=== PATIENT | male | born 1945 | race Caucasian/White ===

== ENCOUNTER → 2020-09-02 10:10 | Outpatient (BNVA) | payer OTHER, SELFPAY | PROVIDERS: PCP Family Medicine; Referring Provider Family Medicine; Visit Provider Podiatrist Foot & Ankle Surgery | DX: M19.071 Primary osteoarthritis, right ankle and foot (principal); M25.571 Pain in right ankle and joints of right foot | CPT/HCPCS: 73610 ==

== ENCOUNTER → 2022-04-25 10:26 | Outpatient (BNVA) | payer OTHER, SELFPAY | PROVIDERS: PCP Family Medicine; Visit Provider Podiatrist Foot & Ankle Surgery | DX: E11.42 Type 2 diabetes mellitus with diabetic polyneuropathy (principal); E11.8 Type 2 diabetes mellitus with unspecified complications; L60.3 Nail dystrophy; M25.571 Pain in right ankle and joints of right foot; M19.071 Primary osteoarthritis, right ankle and foot | CPT/HCPCS: 99213 ==

== ENCOUNTER 2025-03-08 17:13 | Emergency (ER) | payer OTHER, SELFPAY ==
[2025-03-08 17:13] VITALS: BP 119/85; PULSE 101; PULSE 96; RESP 18; RESP 20; TEMP 36.7; O2SAT 100; O2SAT 95
--- NOTE | 2025-03-08 17:14 | CTR_ITS ---
PROCEDURE INFORMATION: Exam: CTA Head With Contrast, Arteriography Exam date and time: 03/08/2025 5:17 PM Age: 79 years old Clinical indication: Speech disturbance; Additional info: CVA TECHNIQUE: Imaging protocol: Computed tomographic angiography of the head with contrast. Exam focused on the arteries. 3D rendering (Not supervised by radiologist): MIP and/or 3D reconstructed images were created by the technologist. Radiation optimization: All CT scans at this facility use at least one of these dose optimization techniques: automated exposure control; mA and/or kV adjustment per patient size (includes targeted exams where dose is matched to clinical indication); or iterative reconstruction. Contrast material: OMNI 350; Contrast volume: 100 ml; Contrast route: INTRAVENOUS (IV); COMPARISON: CT head thrombolytic [id number] 03/08/2025 5:13 PM RADIATION DOSE METRICS: Total DLP (mGy-cm): 441.76 FINDINGS: ANTERIOR CIRCULATION: Right internal carotid artery: There is atherosclerotic calcification with mild stenosis of the clinoid and communicating portions of the right internal carotid artery. Right middle cerebral artery: No occlusion or significant stenosis. No aneurysm. Right anterior cerebral artery: There is focal moderate stenosis in the right A2 segment of the pericallosal anterior cerebral artery. Left internal carotid artery: There is some atherosclerotic calcification of the distal left internal carotid artery without significant stenosis. Left middle cerebral artery: No occlusion or significant stenosis. No aneurysm. Left anterior cerebral artery: No occlusion or significant stenosis. No aneurysm. 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 There is some retrograde filling of the distal portion of the right vertebral artery which supplies the right PICA. Left vertebral artery: There is atherosclerotic calcification and mild stenosis of the mid left V4 vertebral artery segment. Basilar artery: There is some atherosclerotic change and mild narrowing of the mid basilar artery. Right posterior cerebral artery: There is a segment of severe stenosis of the P2 segment of the right posterior cerebral artery. Left posterior cerebral artery: No occlusion or significant stenosis. No aneurysm. Brain: Please see noncontrast CT brain. Cerebral ventricles: No ventriculomegaly. Bones/joints: No acute fracture. Soft tissues: Unremarkable. COMMENTS: THIS REPORT CONTAINS FINDINGS THAT MAY BE CRITICAL TO PATIENT CARE. The findings were verbally communicated via telephone conference with NILDA GERMAIN at 5:59 PM [employer] [place] on 03/08/2025. The findings were acknowledged and understood. PROCEDURE INFORMATION: Exam: CTA Neck With Contrast Exam date and time: 03/08/2025 5:17 PM Age: 79 years old Clinical indication: Speech disturbance; Additional info: CVA TECHNIQUE: Imaging protocol: Computed tomographic angiography of the neck with contrast. Exam focused on the cervical segments of the vasculature. 3D rendering (Not supervised by radiologist): MIP and/or 3D reconstructed images were created by the technologist. Radiation optimization: All CT scans at this facility use at least one of these dose optimization techniques: automated exposure control; mA and/or kV adjustment per patient size (includes targeted exams where dose is matched to clinical indication); or iterative reconstruction. Contrast material: OMNI 350; Contrast volume: 100 ml; Contrast route: INTRAVENOUS (IV); COMPARISON: CT head thrombolytic [id number] 03/08/2025 5:13 PM RADIATION DOSE METRICS: Total DLP (mGy-cm): 441.76 FINDINGS: Right common carotid artery: No stenosis. No dissection or occlusion. Right internal carotid artery: No stenosis of the extracranial segment. No dissection or occlusion. Right external carotid artery: No occlusion or stenosis of the origin. Left common carotid artery: No stenosis. No dissection or occlusion. Left internal carotid artery: There is some focal atherosclerotic calcification proximal left internal carotid artery but this does not cause significant stenosis when measured according to the NASCET criteria. Left external carotid artery: No occlusion or stenosis of the origin. Right vertebral artery: Right vertebral artery is occluded from its origin and throughout the neck. The age of this finding is not certain. Left vertebral artery: There is moderate to severe stenosis at the origin of the left vertebral artery. Soft tissues: Normal. No significant soft tissue swelling. Bones/joints: No acute fracture. CT/CT angio headneck* [id number] IMPRESSION: 1. 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 Please correlate with clinical history. 2. Stenosis right posterior cerebral artery 3. Mild stenosis right basilar artery 4. Stenosis right anterior cerebral artery IMPRESSION: 1. 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 Please correlate clinically. 2. Moderate to severe stenosis of the origin of the left vertebral artery. 3. No significant stenosis or occlusion involving the carotid arteries in the neck. REFERENCES: NASCET CRITERIA. The degree of stenosis in the cervical segment of the internal carotid artery is based on NASCET criteria. Normal is no stenosis. Mild is less than 50% stenosis. Moderate is 50-69% stenosis. Severe is 70% to 99% stenosis. Total occlusion is no detectable patent lumen.
--- NOTE | 2025-03-08 17:15 | CTR_ITS ---
PROCEDURE INFORMATION: Exam: CT Head Without Contrast Exam date and time: 03/08/2025 5:13 PM Age: 79 years old Clinical indication: Stroke-like symptoms; Speech disturbance; Additional info: Symptoms of acute stroke TECHNIQUE: Imaging protocol: Computed tomography of the head without contrast. Radiation optimization: All CT scans at this facility use at least one of these dose optimization techniques: automated exposure control; mA and/or kV adjustment per patient size (includes targeted exams where dose is matched to clinical indication); or iterative reconstruction. Other technique: STROKE PROTOCOL was implemented. COMPARISON: No relevant prior studies available. RADIATION DOSE METRICS: Total DLP (mGy-cm): 1115.68 FINDINGS: Brain: There is moderate cortical atrophy. Low-density changes in the white matter are consistent with nonspecific small vessel chronic ischemic change. There is no intracranial mass, hemorrhage or edema. There are chronic cortical infarcts in the right frontal lobe, temporal lobe left cerebellar hemisphere and possible chronic lacunar infarcts in the basal ganglia and thalami.. The small chronic infarcts in the left side of the corpus callosum. Cerebral ventricles: No ventriculomegaly. Paranasal sinuses: Visualized sinuses are unremarkable. No fluid levels. Mastoid air cells: Visualized mastoid air cells are well aerated. Bones: There is old left occipital craniotomy. Soft tissues: Unremarkable. CT/CT head thrombolytic [id number] IMPRESSION: Old infarcts. No acute finding. ASSESSMENT: ASPECTS ([place] Stroke Program Early CT Score) is 10.
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
--- OUTSIDE RECORDS SUMMARY | 2025-03-08 17:19 | XMS_ITS | Encounter Summary ---
Author Organization [facility] Address [address] [place] [address] Care Team Providers Care Pantry Chef Name Role Phone Britton Love MD Primary Care Provider [phone] Encounter Details Date Type Department Care Team (Late Contact Info) Description 10/20/2005 Outpatient Historical [facility] Trauma and General Surgery [address] [facility] [address] [facility] [place] [address] Garo Sena MD [address] [facility] [address] [place] [address] Social History Tobacco Use Types Packs/Day Years Used Date Smoking Tobacco: Never Assessed Sex and Gender Information Value Date Recorded Sex Assigned at Not on file Legal Sex Male 4:12 AM FIELD ASSOCIATE Gender Identity Not on file Sexual Orientation Not on file documented as of this encounter Plan of Treatment Upcoming Encounters Date Type Department Care Team (Late Contact Info) Description 04/13/2025 10:40 AM FIELD ASSOCIATE Office Visit [facility] Family Medicine [address] [phone] Britton Love MD [address] [phone] documented as of this encounter Visit Diagnoses Not on filedocumented in this encounter Care Teams Pantry Chef Relationship Specialty Start Date End Date Britton Love MD [address] [phone] PCP - General Family Practice 11/04/24 documented as of this encounter
--- OUTSIDE RECORDS SUMMARY | 2025-03-08 17:19 | XMS_ITS | Clinical Summary ---
Author Organization [facility] Address [address] [facility] [address] [place] [address] Care Team Providers Care Nurse Sitter Name Role Phone Britton Love MD Primary Care Provider [phone] Allergies No known active allergies Medications acetaminophen (TYLENOL) 500 mg tablet Take 500 mg by mouth 1 time daily as needed. Active fluticasone propionate (FLONASE) 50 mcg/spray [place], Suspension nasal inhalerIndicatio ns:Fluid level behind tympanic membrane of left ear Administer 2 Sprays in each nostril daily. 16 Gram 2 Active multivitamin (DAILY-ED) tablet Take 1 Tablet by mouth daily. 90 Tablet 3 3 Active dicyclomine (BENTYL) 10 mg capsuleIndicatio ns:Chronic diarrhea Take 1 Capsule (10 mg) by mouth 3 times daily. 90 Capsule 1 3 Active OTHERIndications :Protein-calorie malnutrition, mild Ensure drink 1 bottle BID (Chocolate flavor) 60 Each 5 3 Active doxazosin (CARDURA) 1 mg tabletIndication s:BPH associated with nocturia Take 1 Tablet (1 mg) by mouth daily. 90 Tablet 2 3 Active donepeziL (ARICEPT) 5 mg tabletIndication s:Memory loss Take 1 Tablet (5 mg) by mouth daily at bedtime. 90 Tablet 2 3 Active gabapentin (NEURONTIN) 300 mg capsuleIndicatio ns:Acute midline low back pain with sciatica, sciatica laterality unspecified Take 1 Capsule (300 mg) by mouth daily. 90 Capsule 1 3 Active diclofenac sodium (VOLTAREN) 1 % gelIndications:A cute midline low back pain with sciatica, sciatica laterality unspecified APPLY 4 GM TO AFFECTED AREA(S) FOUR TIMES A DAY FOR PAIN/INFLAMMATI ON; NOT MORE THAN 16 GRAMS DAILY TO ANY LOWER EXTREMITY JOINT. NOT MORE THAN 8 GRAMS DAILY TO ANY UPPER EXTREMITY JOINT. MAX 32GM/DAY OVER ALL JOINTS. (MEASURE DOSE WITH RULER ATTACHED INSIDE BOX) Strength: 1 % 100 Gram 1 3 Active atenoloL (TENORMIN) 25 mg tabletIndication s:Benign hypertension TAKE ONE-HALF TABLET BY MOUTH ONCE A DAY FOR HEART OR TO CONTROL BLOOD PRESSURE. DO NOT TAKE ANTACIDS OR CALCIUM SUPPLEMENTS WITHIN 2 HRS OF TAKING THIS MEDICATION. Strength: 25 mg 45 Tablet 1 3 Active cetirizine (ZyrTEC) 10 mg tablet Take 1 Tablet (10 mg) by mouth 1 time daily as needed for Allergies. 90 Tablet 1 3 Active cholecalciferol, Vitamin D3, 50 mcg (2,000 unit) Tablet TAKE TWO TABLETS BY MOUTH ONCE A DAY FOR VITAMIN D DEFICIENCY. 180 Tablet 1 3 Active amLODIPine (NORVASC) 5 mg tablet Take 5 mg by mouth daily. 4 Active aspirin (Nelly Low Dose Aspirin) 81 mg Tablet, Delayed Release (E.C.) Take 81 mg by mouth daily. 4 Active carvediloL (COREG) 6.25 mg tablet Take 6.25 mg by mouth 2 times daily. 4 Active etodolac (LODINE) 400 mg tablet Take 200 mg by mouth 2 times daily as needed for Pain or Other (See Comment) (Arthritis). Active methocarbamoL (ROBAXIN) 750 mg tablet Take 750 mg by mouth 2 times daily as needed for Spasm. 5 Active donepeziL (ARICEPT) 5 mg tablet Take 5 mg by mouth daily in the morning. Active lisinopriL (PRINIVIL) 20 mg tablet Take 20 mg by mouth daily. 4 Active pantoprazole (PROTONIX) 20 mg Tablet, Delayed Release (E.C.) Take 20 mg by mouth daily. Active tamsulosin (FLOMAX) 0.4 mg capsule Take 0.8 mg by mouth daily. 5 Active ascorbic acid, vitamin C, (VITAMIN C) 1,000 mg Tablet Take 1,000 mg by mouth daily. Active cyanocobalamin 1,000 mcg Tablet Take 1,000 mcg by mouth daily. Active vitamin A 8,000 unit capsule Take 2,400 mcg by mouth daily. 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 Achalasia of esophagus 04/24/2024 History of Raynaud's syndrome 04/24/2024 Memory loss 05/25/2022 PTSD (post-traumatic stress disorder) 10/20/2021 Atherosclerosis of [place] co ronary artery of [place] heart without angina pectoris 10/20/2021 Tinnitus 10/20/2021 Primary insomnia 10/20/2021 Recurrent major depressive disorder, in full rem ission 10/20/2021 Acute midline low back pain with sciatica 2021 Encounters Date Type Department Care Team Description 02/24/2025 External Device Data [facility] ABSTRACTION Provider, Abstract 02/24/2025 External Device Data [facility] ABSTRACTION Provider, Abstract 01/06/2025 External Device Data [facility] ABSTRACTION Provider, Abstract from Last 3 Months Immunizations Immunization Administration Dates Next Due (ADACEL/BOOSTRIX)(10 YR UP) TDAP VACCINE, 0.5ML, IM 12/07/2005 (FARHAT) COVID-19 VACCINE - EMERGENCY USE AUTHORIZATION, AD26,COV2S(PF) 0.5 ML IM SUSP 08/11/2020 (PNEUMOVAX 23)(50 YRS UP) PN EUMOCOCCAL POLYSACCHARIDE (PPV23) 0.5 ML, IM 08/18/2015 (PREVNAR 13)(6 WKS UP) PNEUM OCOCCAL CONJUGATE (PCV13) 0.5 ML, IM 08/10/2014 (SHINGRIX)(50 YRS UP) ZOSTER VACCINE RECOMBINANT, 0.5 ML, IM 08/19/2019,02/17/2019 INFLUENZA VACCINE HIGH DOSE QUADRIVALENT 65 YR UP PF IM 12/01/2022 INFLUENZA VACCINE QUADRIVALE NT 6 MOS UP PF IM 12/30/2021,12/28/2020,12/27/2018,01/07 Influenza Vaccine High Dose 65+ Yrs IM 4 Pneumococcal vaccine, unspec ified formulation 06/22/2010 Td(adult) Unspecified Formulation 08/18/2015 Tetanus Toxoid, Unspecified Formulation 08/05/1996 Social History Tobacco Use Types Packs/Day Years Used Date Smoking Tobacco: Former Cigarettes 0.5 20 0 05/06/2001 - 05/06/2021 Smokeless Tobacco: Never Alcohol Use Standard Drinks/Week Comments Never 0 (1 standard drink = 0.6 oz pur e alcohol) Financial Resource Strain Answer Date R ecorded How hard is it for you to pa y for the very basics like food, housing, medical care, and heating? Patient declined 05/23/2022 Food Insecurity Answer Date Recorded In the past 12 months, have you worried that your food would run out before you had money to buy more? Patient declined 2022 In the past 12 months, did y ou run out of food and didn't have money to buy more? Patient declined 05/23/2022 Transportation Needs Answer Date Record ed In the past 12 months, has l ack of transportation kept you from medical appointments or from getting medications? Patient declined 05/23/2022 Lack of Transportation (Non-Medical) Not on file 05/23/2022 Feeling Safe Answer Date Recorded Are you in a relationship wi th someone who hurts you emotionally and/or physically? No 04/24/2024 Sex and Gender Information Value Date Recorded Sex Assigned at Not on file Legal Sex Male 4:12 AM MEDICAL LAB DIRECTOR Gender Identity Not on file Sexual Orientation Not on file Last Filed Vital Signs Vital Sign Reading Time Taken Comments Blood Pressure 139/78 11/11/2024 9:17 AM CDT Pulse 86 11/11/2024 9:17 AM CDT Temperature 36.9 C (98.5 F) 11/11/2024 9:17 AM CDT Respiratory Rate 16 11/11/2024 9:17 AM CDT Oxygen Saturation 98% 11/11/2024 9:17 AM CDT Inhaled Oxygen Concentration - - Weight 78.7 kg (173 lb 9.6 oz) 11/11/2024 9:17 A M CDT Height 167.6 cm (5' 6 ) 11/11/2024 9:17 AM CDT Body Mass Index 28.02 11/11/2024 9:17 AM CDT Plan of Treatment Upcoming Encounters Date Type Department Care Team (Late st Contact Info) Description 04/13/2025 10:40 AM MEDICAL LAB DIRECTOR Office Visit [facility] [place] [address] [address] Britton Love MD [address] [address] Health Maintenance Due Date Last Done Comments DIABETES MICROALBUMIN ANNUAL SCREEN 12/14/1963 RSV VACCINE (60+ or ) (1 - 1-dose 75+ series) 12/14/2022 LDL CHOLESTEROL ANNUAL 10/19/2023 10/18/2022, 2021 Medicare Advantage (OR) Preventative Visit/Annual Wellness Visit 03/12/2024 05/23/2022, 01/06/2022 DIABETES HBA1C Q 6 MONTHS 10/01/2024 04/03/2024 INFLUENZA VACCINE (#1) 2024 , 12/01/2022, 12/30/2021, Additional history exists COVID-19 Vaccine (3 - 2024-2 6 season) 2024 12/07/2023, 08/11/2020 DIABETES: A1C (Auto Order) 04/03/2025 04/03/2024 DTAP/TDAP/TD VACCINES (3 - T d or Tdap) 08/17/2025 08/18/2015, 12/07/2005 PNEUMOCOCCAL VACCINE 50+ YEARS Completed 0 08/18/2015, 08/10/2014, 06/22/2010 ZOSTER VACCINE Completed 08/19/2019, 02/17/2019 [facility] uACR (Auto Order) Completed 04/03/2024 KHE eGFR (Auto Order) Completed 11/04/2024 , 04/24/2024, 10/18/2022, Additional history exists Procedures Procedure Name Priority Date/Time Associated Diagnosis Comments COMPREHENSIVE METABOLIC PANEL Stat 11/04/2024 1:55 PM CDT Dizziness and giddiness LIPID PANEL Routine 10/18/2022 9:31 AM CDT Atherosclerosis of [place] coronary artery of [place] heart without angina pectoris Benign hypertension from Last 3 Months or Most Recently Relevant to Health Maintenance Results * (ABNORMAL) COMPREHENSIVE METABOLIC PANEL (11/04/2024 1:55 PM CDT) SODIUM 138 136 - 145 mmol/L 11/04/2024 2:17 PM T [facility] POTASSIUM 3.4(L) 3.5 - 5.1 mmol/L 11/04/2024 2:17 PM [facility] CHLORIDE 100 98 - 107 mmol/L 11/04/2024 2:17 PM [facility] CO2 26 22 - 29 mmol/L 11/04/2024 2:17 PM [facility] CALCIUM 9.5 8.8 - 10.2 mg/dL 11/04/2024 2:17 PM [facility] BUN 14 8 - 23 mg/dL 11/04/2024 2:17 PM [facility] CREATININE 1.00 0.67 - 1.17 mg/dL 11/04/2024 2:17 PM [facility] Comment:The GFR result is no t clinically significant on patients <18 or >70 years of age. GLUCOSE 170(H) 74 - 99 mg/dL 11/04/2024 2:17 PM [facility] TOTAL PROTEIN 7.0 6.6 - 8.7 g/dL 11/04/2024 2:17 PM [facility] ALBUMIN 4.1 3.5 - 5.2 g/dL 11/04/2024 2:17 PM [facility] BILIRUBIN TOTAL 1.1 0.0 - 1.2 mg/dL 11/04/2024 2:17 PM [facility] ALKALINE PHOSPHATASE 70 40 - 129 U/L 11/04/2024 2:17 PM [facility] AST 20 0 - 50 U/L 11/04/2024 2:17 PM [facility] ALT 14 0 - 50 U/L 11/04/2024 2:17 PM CDT [facility] GFR >60 mL/min/1.7 3 sq meter 11/04/2024 2:17 PM CDT [facility] Comment:eGFR calculated with 2020 CKD-EPI equation. Vegetarian diet, extremely high or low muscle mass, and may affect results. Cystatin C with Glomerular Filtration Rate is a suitable alternative for these patients. ANION GAP 12 5 - 20 mmol/L 11/04/2024 2:17 PM CDT [facility] Blood Collection / Unknown 11/04/2024 1:55 PM CDT 11/04/2024 1:55 PM CDT us Donna Nelson DISPATCHER MOTOR VEHICLE CHEMISTRY ORDERABLES Final Result [facility] CLIA # [id number] [address] [address] * LIPID PANEL (10/18/2022 9:31 AM CDT) Pathologist [facility] CHOLESTEROL 152 <200 mg/dL [facility] HDL 52 > OR = 40 mg/dL [facility] TRIGLYCERIDE 101 <150 mg/dL [facility] LDL CALCULATED 81 mg/dL (calc) [facility] Comment: Reference range: <100 Desirable range <100 mg/dL for primary prevention; <70 mg/dL for patients with CHD or diabetic patients with > or = 2 CHD risk factors. LDL-C is now calculated using the Tom-Mir calculation, which is a validated novel method providing better accuracy than the Friedewald equation in the estimation of LDL-C. Tom JURADO et al. KETURAH. 2013;310(19): 5353-8651 (http://education.Hipvan.Gutenberg Technology/faq/PBB920) CHOL/HDL RATIO 2.9 <5.0 (calc) [facility] TOTAL NON-HDL CHOL(LDL+VLDL) 100 <130 mg/dL (calc) [facility] Comment: For patients with diabetes plus 1 major ASCVD risk factor, treating to a non-HDL-C goal of <100 mg/dL (LDL-C of <70 mg/dL) is considered a therapeutic option. Test Performed at: [facility] [id number] [address] Marcie Garcia MD Blood 10/18/2022 9:31 AM CDT 10/19/2022 5:01 AM CDT Humera Gleason DISPATCHER MOTOR VEHICLE CHEMISTRY ORDERABLES Fin al Result [facility] [phone] [facility] [address] [address] [id number] from Last 3 Months or Most Recently Relevant to Health Maintenance Insurance [place] [address] [place] [employer] [employer] Advance Directives For more information, please contact: [phone] * Full Code (Latest Code Status on File) Date Activated Date Inactivated Comments 08/03/2022 12:57 PM 08/03/2022 3:58 PM Care Teams Nurse Sitter Relationship Specialty Start Date End Date Britton Love MD [address] [address] PCP - General Family Practice 11/04/24
--- OUTSIDE RECORDS SUMMARY | 2025-03-08 17:19 | XMS_ITS | Data Portability ---
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 Primary Care P kevan Assessment Encounter Date Assessment Date Assessment LastModified by Organization Details LastModified Time 07/12/2023 07/12/2023 77 year old man with a referral for aortic stenosis. [email or web address] Not available 07/12/2023 10:08:22 08/28/2023 08/28/2023 77 year old man with a referral for aortic stenosis. [email or web address] Not available 08/28/2023 13:07:22 05/27/2024 05/27/2024 Raynaud's Unclear etiology will need further workup could be secondary to chronic hepatitis C. But he is treated as of now but will give him the benefit of doubt this patient is a more prone for vasculitis and also cryoglobulinemia. 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 Clinically or serologically I did not find any evidence of Raynaud's. If he does it is primary and he is already on amlodipine and to continue the same No other significant rheumatologic positive signs and symptoms or serology at this time. 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 [email or web address] Not available 06/27/2024 10:22:19 09/26/2024 09/26/2024 78-year-old male presents to the clinic for consultation for dysphagia. Patient states that he had difficulty swallowing for years. Patient states that he will have food to get stuck in his throat or his chest and he will have to cough or vomit it back up. He states that this happens almost daily. Patient is currently taking pantoprazole 20 mg daily for GERD. He states that he has occasional breakthroughs I offered to increase his pantoprazole and he did not feel it was needed for at this time. Patient has no known family history of gastrointestinal cancers. Patient reports that his bowel movements are well that he has diarrhea every so often, patient used to take Metamucil and he felt this was helpful but [facility] I will send in a new prescription today. Patient has a past history of a cholecystectomy. Patient denies any changes in bowel habits or GI bleeding. Patient is a former smoker and he does not regularly consume alcohol. Impression: 1. Dysphagia 2. GERD, fairly well-managed 3. Intermittent diarrhea, chronic 4. History of cholecystectomy 5. No previous EGD 6. No known family history of gastrointestinal cancers 7. Former smoker Recommendations: 1. Schedule EGD at patient's earliest convenience 2. Continue pantoprazole 20 mg p.o. daily 30 minutes prior to 1 major meal per day, I offered to increase to 40 mg daily due to breakthrough GERD and patient blind at this time 3. Begin Metamucil 1 tablespoon daily water per day 4. Follow-up in GI clinic 2 weeks post endoscopic procedures [email or web address] Not available 09/26/2024 14:00:23 Plan of Treatment Reminders Order Date Submit Date Provider Last Modified By Organization Details Last Modified Time Details Appointments None recorded. Lab BONY (antinuclea r antibodies) titer + pattern, ifa, serum 2024 025 [email or web address] [facility] (Lab)_do Not Use, [address], [place], [address], 5 16:06:47 anti-dsdna Ab titer, serum 2024 025 [email or web address] [facility] (Lab)_do Not Use, [address], [place], [address], 5 16:06:48 antiphospho lipid antibody panel, serum [address] (Lab)_do Not Use, [address], [place], [address], 5 16:06:48 C3 + C4 (complement ), serum [address] (Lab)_do Not Use, [address], [place], [address], 5 16:06:48 scleroderma (SCL-70) autoantibod ies, serum [address] (Lab)_do Not Use, [address], [place], [address], 5 16:06:48 cryoglobuli n, qualitative , serum [address] (Lab)_do Not Use, [address], [place], [address], 5 16:06:49 centromere Ab, titer, IFA, serum [address] (Lab)_do Not Use, [address], [place], [address], 5 16:06:49 sjogren antibody panel (ssa, ssb, ro, la), serum [address] (Lab)_do Not Use, [address], [place], [address], 5 16:06:49 ribonucleop rotein extractable nuclear 63kD Ab, QL, serum or plasma [address] (Lab)_do Not Use, [address], [place], [address], 5 09:14:59 welder plastic Ab, serum [address] (Lab)_do Not Use, [address], [place], [address], 5 12:27:47 smooth muscle Ab titer, serum [address] (Lab)_do Not Use, [address], [place], [address], 5 11:20:09 Referral gastroenter ologist referral - [place] [id number] Lucia Valid 04/30/24 to 11/23/24 final 2024 025 [facility], [address], [place], [address], 5 11:30:29 Procedures upper endoscopy procedure (EGD) (PROC) - Possible Procedures: Take biopsies if indicated, possible variceal banding, possible argon plasma coagulation , possible esophageal dilation, possible snare polypectomy . Pre-Procedu re Orders: 1. Start 20 gauge or larger heparin/robinson ine lock, may use 0.5 ml of 1% lidocaine or topical anesthetic cream. Start IVF of Lactated Ringers at 80 ML/HR. Post Procedure: 1. Vitals every 5 minutes times 3, then every 30 minutes until discharge. 2. Remove IV when tolerating liquids well. 3. Discharge when meets criteria. 4. Schedule Clinic Follow up in 3 weeks CPT: 91027, 98656, [address], [address] [facility], [address], [place], [address], 5 11:55:47 Surgeries None recorded. Imaging None recorded. Medication Orders Metamucil 3.4 gram/5.4 gram oral powder 2024 025 [facility], [address], [place], [address], 5 10:41:15 carvedilol 6.25 mg tablet 2023 024 [facility], [address], [place], [address], 4 17:06:03 amlodipine 5 mg tablet 2023 024 [facility], [address], [place], [address], 4 17:06:08 lisinopril 20 mg tablet 2023 024 [facility], [address], [place], [address], 4 17:06:04 Patient TargetsNo targets recorded. 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 Referral for Dysphagia dysphagia when eating CANDIDO [id number] Lucia Valid 04/30/24 to 11/23/24 final Referring Physician: Chelle Myers, Rheumatology, Encounter Date: 06/27/2024 Results Created Date Observation Date Name Description Value Unit Range Abnormal Flag Note LastModifiedBy Organization Detail LastModifiedTime 06/28/19 24 06/28/2023 COMPL ETE BLOOD COUNT W/AUT O DIFFE RENTI AL WBC 6.2 K/uL 4.6-10 .9 Not Available [facility] (Lab)_do Not Use [address], [place], [address], 06/28/2023 18:27:49 06/28/19 24 06/28/2023 COMPL ETE BLOOD COUNT W/AUT O DIFFE RENTI AL RBC cnt 5.09 4.45-5 .99 Not Available [facility] (Lab)_do Not Use [address], [place], [address], 06/28/2023 18:27:49 06/28/19 24 06/28/2023 COMPL ETE BLOOD COUNT W/AUT O DIFFE RENTI AL HGB 16.2 g/dL 13.4-1 7.6 Not Available [facility] (Lab)_do Not Use [address], [place], [address], 06/28/2023 18:27:49 06/28/19 24 06/28/2023 COMPL ETE BLOOD COUNT W/AUT O DIFFE RENTI AL HCT 46.6 % 40.1-5 3.9 Not Available [facility] (Lab)_do Not Use [address], [place], [address], 06/28/2023 18:27:49 06/28/19 24 06/28/2023 COMPL ETE BLOOD COUNT W/AUT O DIFFE RENTI AL MCV 91.6 fL 80.1-9 6.9 Not Available [facility] (Lab)_do Not Use [address], [place], [address], 06/28/2023 18:27:49 06/28/19 24 06/28/2023 COMPL ETE BLOOD COUNT W/AUT O DIFFE RENTI AL MCH 31.8 pg 27.1-3 2.9 Not Available [facility] (Lab)_do Not Use [address], [place], [address], 06/28/2023 18:27:49 06/28/19 24 06/28/2023 COMPL ETE BLOOD COUNT W/AUT O DIFFE RENTI AL MCHC 34.7 32.1-3 5.9 Not Available [facility] (Lab)_do Not Use [address], [place], [address], 06/28/2023 18:27:49 06/28/19 24 06/28/2023 COMPL ETE BLOOD COUNT W/AUT O DIFFE RENTI AL RDW 13.2 % 11.6-1 4.4 Not Available [facility] (Lab)_do Not Use [address], [place], [address], 06/28/2023 18:27:49 06/28/19 24 06/28/2023 COMPL ETE BLOOD COUNT W/AUT O DIFFE RENTI AL plt cnt 225 x10(3 )/mcL 151-44 9 Not Available [facility] (Lab)_do Not Use [address], [place], [address], 06/28/2023 18:27:49 06/28/19 24 06/28/2023 COMPL ETE BLOOD COUNT W/AUT O DIFFE RENTI AL MPV 10.3 fL 7.5-10 .3 Not Available [facility] (Lab)_do Not Use [address], [place], [address], 06/28/2023 18:27:49 06/28/19 24 06/28/2023 COMPL ETE BLOOD COUNT W/AUT O DIFFE RENTI AL NRBC% auto 0 % no reference range Not Available [facility] (Lab)_do Not Use [address], [place], [address], 06/28/2023 18:27:49 06/28/19 24 06/28/2023 COMPL ETE BLOOD COUNT W/AUT O DIFFE EDUIN AL NRBC# auto 0 /100_ WBC no reference range Not Available [facility] (Lab)_do Not Use [address], [place], [address], 06/28/2023 18:27:49 06/28/19 24 06/28/2023 .AUTO DIFF neutrophils% auto 63.9 % 38.0-6 9.0 Not Available [facility] (Lab)_do Not Use [address], [place], [address], 06/28/2023 18:27:50 06/28/19 24 06/28/2023 .AUTO DIFF lymphocytes% auto 23.8 % 22.0-5 0.0 Not Available [facility] (Lab)_do Not Use [address], [place], [address], 06/28/2023 18:27:50 06/28/19 24 06/28/2023 .AUTO DIFF monocytes% auto 8.7 % 3.0-8. 0 high Not Available [facility] (Lab)_do Not Use [address], [place], [address], 06/28/2023 18:27:50 06/28/19 24 06/28/2023 .AUTO DIFF eosinophils% auto 3.0 % 1.0-2. 0 high Not Available [facility] (Lab)_do Not Use [address], [place], [address], 06/28/2023 18:27:50 06/28/19 24 06/28/2023 .AUTO DIFF basophils% auto 0.6 % 1.0-4. 0 low Not Available [facility] (Lab)_do Not Use [address], [place], [address], 06/28/2023 18:27:50 06/28/19 24 06/28/2023 .AUTO DIFF neutrophils# auto 4.0 3.0-7. 0 Not Available [facility] (Lab)_do Not Use [address], [place], [address], 06/28/2023 18:27:50 06/28/19 24 06/28/2023 .AUTO DIFF lymphocytes# auto 1.5 2.0-4. 0 low Not Available [facility] (Lab)_do Not Use [address], [place], [address], 06/28/2023 18:27:50 06/28/19 24 06/28/2023 .AUTO DIFF monocytes# auto 0.5 1.0-1. 0 low Not Available [facility] (Lab)_do Not Use [address], [place], [address], 06/28/2023 18:27:50 06/28/19 24 06/28/2023 .AUTO DIFF eos# auto 0.2 2.0-2. 0 low Not Available [facility] (Lab)_do Not Use [address], [place], [address], 06/28/2023 18:27:50 06/28/19 24 06/28/2023 .AUTO DIFF basophils# auto 0.0 1.0-1. 0 low Not Available [facility] (Lab)_do Not Use [address], [place], [address], 06/28/2023 18:27:50 06/28/19 24 06/28/2023 PARTI AL THROM BOPLA STIN TIME thromboplast in time partial 27.1 secon d(s) 20.1-3 2.9 Not Available [facility] (Lab)_do Not Use [address], [place], [address], 06/28/2023 18:34:26 06/28/19 24 06/28/2023 PROTH ROMBI N TIME W/ INR PT 11.1 secon d(s) 9.6-12 .4 Not Available [facility] (Lab)_do Not Use [address], [place], [address], 06/28/2023 18:34:27 06/28/19 24 06/28/2023 PROTH ROMBI N TIME W/ INR INR 1.0 no reference range INR Inter preti ve Data Throm botic Disor keila Recom rosa maria d INR Proph ylaxi s/evelina atmen t of: Venou s Throm bosis 2.0-3 .0 Pulmo nary Embol ism 2.0-3 .0 Preve ntion of Syste yarely Embol ism from: Tissu e Heart Valve s 2.0-3 .0 Myoca rdial Infar ction 2.0-3 .0 (prev ent syste yarely embol ism) Valvu lar Heart Disea se 2.0-3 .0 Atria l Fibri latio n 2.0-3 .0 Mecha nical Prost hetic Valve s 2.5.3 .5 Not Available [facility] (Lab)_do Not Use [address] , [place], [address], 06/28/2023 18:34:27 06/28/19 24 06/28/2023 COMPR EHENS MITCHELL METAB OLIC PROFI LE eGFR 72 mL/mi n/1.7 3_m2 >=90 low CKD is defin ed by the prese nce of alvin latif ation rate (GFR) <60 mL for >3 month s and/o r evide nce of muna (eg, struc tural abnor malit ies, histo logic abnor malit ies, album inuri a, urina ry sedim ent abnor malit ies, renal tubul ar disor ders, and/o r histo ry of kidne y trans plant ation ) for >3mon ths. This table provi tamiko inter preta tion of speci fic eGFR value s. Creat inine measu remen ts, and there fore eGFR calcu latio ns, are affec caden by very high or very low muscl e mass, muscl e injur y, a diet very high in meat, hepat ic cirrh osis, certa in drugs , etc. Stage s of CKD: Stage Descr iptio n GFR mL/mi n 1 Kidne y damag e with lisette l or incre ased GFR 90 2 Kidne y damag e with mild decre ase in GFR 60 to 89 3 Moder ate decre ase in GFR 30 to 59 4 Sever e decre ase in GFR 15 to 29 5 Kidne y failu re <15 (or dialy sis) Note: GFR Lisette l range >60, equat ion not valid ated for ages <18 and >70 and pregn ant women . Not Available [facility] (Lab)_do Not Use [address], [place], [address], 06/28/2023 18:39:55 06/28/19 24 06/28/2023 COMPR EHENS MITCHELL METAB OLIC PROFI LE glucose 137 mg/dL 71-109 high Not Available [facility] (Lab)_do Not Use [address], [place], [address], 06/28/2023 18:39:55 06/28/19 24 06/28/2023 COMPR EHENS MITCHELL METAB OLIC PROFI LE BUN 17 mg/dL 8-17 Not Available [facility] (Lab)_do Not Use [address], [place], [address], 06/28/2023 18:39:55 06/28/19 24 06/28/2023 COMPR EHENS MITCHELL METAB OLIC PROFI LE creatinine 1.1 mg/dL 0.6-1. 3 Not Available [place] [facility] (Lab)_do Not Use [address], [place], [address], 06/28/2023 18:39:55 06/28/19 24 06/28/2023 COMPR EHENS MITCHELL METAB OLIC PROFI LE BUN/crea ratio 15.45 6.01-1 9.99 Not Available [facility] (Lab)_do Not Use [address], [place], [address], 06/28/2023 18:39:55 06/28/19 24 06/28/2023 COMPR EHENS MITCHELL METAB OLIC PROFI LE sodium 138 mmol/ L 136-14 9 Not Available [facility] (Lab)_do Not Use [address], [place], [address], 06/28/2023 18:39:55 06/28/19 24 06/28/2023 COMPR EHENS MITCHELL METAB OLIC PROFI LE potassium 3.7 mEq/L 3.6-5. 2 Not Available [facility] (Lab)_do Not Use [address], [place], [address], 06/28/2023 18:39:55 06/28/19 24 06/28/2023 COMPR EHENS MITCHELL METAB OLIC PROFI LE chloride 102 mmol/ L 96-109 Not Available [facility] (Lab)_do Not Use [address], [place], [address], 06/28/2023 18:39:55 06/28/19 24 06/28/2023 COMPR EHENS MITCHELL METAB OLIC PROFI LE carbon dioxide 24 mmol/ L 22-33 Not Available [facility] (Lab)_do Not Use [address], [place], [address], 06/28/2023 18:39:55 06/28/19 24 06/28/2023 COMPR EHENS MITCHELL METAB OLIC PROFI LE calcium 9.1 mg/dL 8.6-10 .0 Not Available [facility] (Lab)_do Not Use [address], [place], [address], 06/28/2023 18:39:55 06/28/19 24 06/28/2023 COMPR EHENS MITCHELL METAB OLIC PROFI LE Ca corrected 9.0 mg/dL 8.6-10 .0 Not Available [facility] (Lab)_do Not Use [address], [place], [address], 06/28/2023 18:39:55 06/28/19 24 06/28/2023 COMPR EHENS MITCHELL METAB OLIC PROFI LE prot total 7.8 g/dL 6.5-8. 2 Not Available [facility] (Lab)_do Not Use [address], [place], [address], 06/28/2023 18:39:55 06/28/19 24 06/28/2023 COMPR EHENS MITCHELL METAB OLIC PROFI LE albumin 4.1 g/dL 3.6-4. 9 Not Available [facility] (Lab)_do Not Use [address], [place], [address], 06/28/2023 18:39:55 06/28/19 24 06/28/2023 COMPR EHENS MITCHELL METAB OLIC PROFI LE globulin 4 no reference range Not Available [facility] (Lab)_do Not Use [address], [place], [address], 06/28/2023 18:39:55 06/28/19 24 06/28/2023 COMPR EHENS MITCHELL METAB OLIC PROFI LE albumin/glob ulin ratio 1.11 1.01-2 .49 Not Available [facility] (Lab)_do Not Use [address], [place], [address], 06/28/2023 18:39:55 06/28/19 24 06/28/2023 COMPR EHENS MITCHELL METAB OLIC PROFI LE anion gap 12.0 mmol/ L 3.1-10 .9 high Not Available [facility] (Lab)_do Not Use [address], [place], [address], 06/28/2023 18:39:55 06/28/19 24 06/28/2023 COMPR EHENS MITCHELL METAB OLIC PROFI LE alkaline phosphatase 70 U/L 51-135 Not Available [facility] (Lab)_do Not Use [address], [place], [address], 06/28/2023 18:39:55 06/28/19 24 06/28/2023 COMPR EHENS MITCHELL METAB OLIC PROFI LE AST 16 U/L 16-36 Not Available [facility] (Lab)_do Not Use [address], [place], [address], 06/28/2023 18:39:55 06/28/19 24 06/28/2023 COMPR EHENS MITCHELL METAB OLIC PROFI LE ALT 26 U/L 31-64 low Not Available [facility] (Lab)_do Not Use [address], [place], [address], 06/28/2023 18:39:55 06/28/19 24 06/28/2023 COMPR EHENS MITCHELL METAB OLIC PROFI LE bili total 1.6 mg/dL 0.1-0. 9 high Not Available [facility] (Lab)_do Not Use [address], [place], [address], 06/28/2023 18:39:55 06/28/19 24 06/28/2023 COMPR EHENS MITCHELL METAB OLIC PROFI LE osmol calc 279 mOsm/ kg 281-30 0 low Not Available [facility] (Lab)_do Not Use [address], [place], [address], 06/28/2023 18:39:55 07/02/19 24 07/02/2023 .ISTA T CG8 PLUS W/STA T NOTES W/O HH POC istat sodium DM 140 mmol/ L no reference range Not Available [facility] (Lab)_do Not Use [address], [place], [address], 07/02/2023 10:07:36 07/02/19 24 07/02/2023 .ISTA T CG8 PLUS W/STA T NOTES W/O HH POC istat potassium DM 3.9 mmol/ L no reference range Not Available [facility] (Lab)_do Not Use [address], [place], [address], 07/02/2023 10:07:36 07/02/19 24 07/02/2023 .ISTA T CG8 PLUS W/STA T NOTES W/O HH POC istat glucose DM 157 no reference range Not Available [facility] (Lab)_do Not Use [address], [place], [address], 07/02/2023 10:07:36 07/02/19 24 07/02/2023 .ISTA T CG8 PLUS W/STA T NOTES W/O HH POC istat calcium ionized DM 1.23 mmol/ L no reference range Not Available [facility] (Lab)_do Not Use [address], [place], [address], 07/02/2023 10:07:36 07/02/19 24 07/02/2023 .ISTA T CG8 PLUS W/STA T NOTES W/O HH POC IS pH DM 7.330 no reference range Not Available [facility] (Lab)_do Not Use [address], [place], [address], 07/02/2023 10:07:36 07/02/19 24 07/02/2023 .ISTA T CG8 PLUS W/STA T NOTES W/O HH POC istat pCO2 DM 48.9 mmHg no reference range Not Available [facility] (Lab)_do Not Use [address], [place], [address], 07/02/2023 10:07:36 07/02/19 24 07/02/2023 .ISTA T CG8 PLUS W/STA T NOTES W/O HH POC istat pO2 DM 121 no reference range Not Available [facility] (Lab)_do Not Use [address], [place], [address], 07/02/2023 10:07:36 07/02/19 24 07/02/2023 .ISTA T CG8 PLUS W/STA T NOTES W/O HH POC istat TCO2 calc 27 mmol/ L no reference range Not Available [facility] (Lab)_do Not Use [address], [place], [address], 07/02/2023 10:07:36 07/02/19 24 07/02/2023 .ISTA T CG8 PLUS W/STA T NOTES W/O HH POC istat HCO3 calc 25.8 no reference range Not Available [facility] (Lab)_do Not Use [address], [place], [address], 07/02/2023 10:07:36 07/02/19 24 07/02/2023 .ISTA T CG8 PLUS W/STA T NOTES W/O HH POC istat base excess calc 0 mmol/ L no reference range Not Available [facility] (Lab)_do Not Use [address], [place], [address], 07/02/2023 10:07:36 07/02/19 24 07/02/2023 .ISTA T CG8 PLUS W/STA T NOTES W/O HH POC istat o2sat calc 98 no reference range Sampl e Type: unkno wn; Opera tor ID: [id number] Not Available [facility] (Lab)_do Not Use [address], [place], [address], 07/02/2023 10:07:36 07/02/19 24 07/02/2023 .ISTA T CG8 PLUS W/STA T NOTES W/O HH POC istat sodium DM 136 mmol/ L no reference range Not Available [facility] (Lab)_do Not Use [address], [place], [address], 07/02/2023 17:47:53 07/02/19 24 07/02/2023 .ISTA T CG8 PLUS W/STA T NOTES W/O HH POC istat potassium DM 3.8 mmol/ L no reference range Not Available [facility] (Lab)_do Not Use [address], [place], [address], 07/02/2023 17:47:53 07/02/19 24 07/02/2023 .ISTA T CG8 PLUS W/STA T NOTES W/O HH POC istat glucose DM 146 no reference range Not Available [facility] (Lab)_do Not Use [address], [place], [address], 07/02/2023 17:47:53 07/02/19 24 07/02/2023 .ISTA T CG8 PLUS W/STA T NOTES W/O HH POC istat calcium ionized DM 1.22 mmol/ L no reference range Not Available [facility] (Lab)_do Not Use [address], [place], [address], 07/02/2023 17:47:53 07/02/19 24 07/02/2023 .ISTA T CG8 PLUS W/STA T NOTES W/O HH POC IS pH DM 7.291 no reference range Not Available [facility] (Lab)_do Not Use [address], [place], [address], 07/02/2023 17:47:53 07/02/19 24 07/02/2023 .ISTA T CG8 PLUS W/STA T NOTES W/O HH POC istat pCO2 DM 50.0 mmHg no reference range Not Available [facility] (Lab)_do Not Use [address], [place], [address], 07/02/2023 17:47:53 07/02/19 24 07/02/2023 .ISTA T CG8 PLUS W/STA T NOTES W/O HH POC istat pO2 DM 43 no reference range Not Available [facility] (Lab)_do Not Use [address], [place], [address], 07/02/2023 17:47:53 07/02/19 24 07/02/2023 .ISTA T CG8 PLUS W/STA T NOTES W/O HH POC istat TCO2 calc 26 mmol/ L no reference range Not Available [facility] (Lab)_do Not Use [address], [place], [address], 07/02/2023 17:47:53 07/02/19 24 07/02/2023 .ISTA T CG8 PLUS W/STA T NOTES W/O HH POC istat HCO3 calc 24.1 no reference range Not Available [facility] (Lab)_do Not Use [address], [place], [address], 07/02/2023 17:47:53 07/02/19 24 07/02/2023 .ISTA T CG8 PLUS W/STA T NOTES W/O HH POC istat base excess calc -2 mmol/ L no reference range Not Available [facility] (Lab)_do Not Use [address], [place], [address], 07/02/2023 17:47:53 07/02/19 24 07/02/2023 .ISTA T CG8 PLUS W/STA T NOTES W/O HH POC istat o2sat calc 73 no reference range Sampl e Type: unkno wn; Opera tor ID: [id number] Not Available [facility] (Lab)_do Not Use [address], [place], [address], 07/02/2023 17:47:53 07/02/19 24 07/02/2023 GLUCO SE LEVEL POC BEDSI DE glu POC bdside 137 mg/dL 65-90 high Opera tor ID: [id number] Not Available [facility] (Lab)_do Not Use [address] [facility], [place], [address], 07/03/2023 07:33:15 05/28/19 25 05/29/2024 DNA DOUBL E STRAN DED ANTIB [place] - SEND OUT DNA (ds) antibody cq <1 intlu nit/m L <=4 no reference range Value Inter preta tion or=10 IU/mL : Posit mitchell Lab test perfo rmed by: Lab Mnemo braydon: [facility] [id number] [employer] Clyde Monaco MD PhD Not Available [facility] (Lab)_do Not Use [address], [place], [address], 05/29/2024 20:14:50 05/28/19 25 05/29/2024 SCLER ODERM A SCL-7 0 ANTIB SHELLEY - SEND OUT T [id number] <1.0 no reference range Refer ence Range : < 1.0 NEG AI Lab test perfo rmed by: Lab Mnemo braydon: [facility] [id number] [employer] Clyde Monaco MD PhD Not Available [facility] (Lab)_do Not Use [address], [place], [address], 05/29/2024 20:14:52 05/28/19 25 05/29/2024 SJOGR EN'S ANTIB SHELLEY (SS-A )(SS- B) - SEND O sjogrensabss acq <1.0 no reference range Refer ence Range : < 1.0 NEG AI Not Available [facility] (Lab)_do Not Use [address], [place], [address], 05/29/2024 20:14:53 05/28/19 25 05/29/2024 SJOGR EN'S ANTIB SHELLEY (SS-A )(SS- B) - SEND O sjogrensabss bcq <1.0 no reference range Refer ence Range : < 1.0 NEG AI Lab test perfo rmed by: Lab Mnemo braydon: [facility] [id number] [employer] [facility] [place] Clyde Monaco MD PhD Not Available [facility] (Lab)_do Not Use [address], [place], [address], 05/29/2024 20:14:53 05/28/19 25 05/29/2024 CENTR OMERE B ANTIB SHELLEY - SEND OUT TO CQ centromerebc q <1.0 no reference range Refer ence Range : < 1.0 NEG AI Lab test perfo rmed by: Lab Mnemo braydon: [facility] [address] [employer] [facility] [place] Clyde Monaco MD PhD Not Available [facility] (Lab)_do Not Use [address], [place], [address], 05/29/2024 20:14:54 05/28/19 25 05/30/2024 ANTIP HOSPH OLIPI D AB PANEL SENDO UT TO CQ cardiolipin gcq <2.0 <20.0 no reference range Value Inter preta tion ----- ----- ----- ---- < 20.0 Antib shelley not detec caden > or = 20.0 Antib shelley detec caden Not Available [facility] (Lab)_do Not Use [address] [place], [address], 05/30/2024 13:14:25 05/28/19 25 05/30/2024 ANTIP HOSPH OLIPI D AB PANEL SENDO UT TO CQ cardiolipin acq <2.0 <20.0 no reference range Value Inter preta tion ----- ----- ----- ---- < 20.0 Antib shelley not detec caden > or = 20.0 Antib shelley detec caden Not Available [facility] (Lab)_do Not Use [address] [place], [address], 05/30/2024 13:14:25 05/28/19 25 05/30/2024 ANTIP HOSPH OLIPI D AB PANEL SENDO UT TO CQ cardiolipin mcq <2.0 <20.0 no reference range Value Inter preta tion ----- ----- ----- ---- < 20.0 Antib shelley not detec caden > or = 20.0 Antib shelley detec caden Lab test perfo rmed by: Lab Mnemo braydon: [facility] [address] [place], [place] Clyde Monaco MD PhD Not Available [facility] (Lab)_do Not Use [address] [place], [address], 05/30/2024 13:14:25 05/28/19 25 05/30/2024 ANTIP HOSPH OLIPI D AB PANEL SENDO UT TO CQ phosphatidig gcq 13 unit( s) <=30 no reference range For addit ional infor estefani mclaughlin e refer to http: //[facility] n.Que stDia gnost ics.c om/fa q/FAQ 262 (This link is being provi ded for infor matio nal/ educa gail l purpo ses only. ) Not Available [facility] (Lab)_do Not Use [address], [place], [address], 05/30/2024 13:14:25 05/28/19 25 05/30/2024 ANTIP HOSPH OLIPI D AB PANEL SENDO UT TO CQ phosphatidig mcq <9 unit( s) <=30 no reference range For addit ional estefani gamino e refer to http: //[facility] n.Que stDia gnost ics.c om/fa q/FAQ 262 (This link is being provi ded for infor matio nal/ educa gail l purpo ses only. ) Not Available [facility] (Lab)_do Not Use [address] [facility], [place], [address], 05/30/2024 13:14:25 05/28/19 25 05/30/2024 ANTIP HOSPH OLIPI D AB PANEL SENDO UT TO CQ [id number] acq <2.0 unit/ mL <20.0 no reference range Value Inter preta tion ----- ----- ----- ---- < 20.0 Antib shelley not detec caden > or = 20.0 Antib shelley detec caden Not Available [facility] (Lab)_do Not Use [address] [facility], [place], [address], 05/30/2024 13:14:25 05/28/19 25 05/30/2024 ANTIP HOSPH OLIPI D AB PANEL SENDO UT TO CQ [id number] mcq <2.0 unit/ mL <20.0 no reference range Value Inter preta tion ----- ----- ----- ---- < 20.0 Antib shelley not detec caden > or = 20.0 Antib shelley detec caden Not Available [facility] (Lab)_do Not Use [address] [facility], [place], [address], 05/30/2024 13:14:25 05/28/19 25 05/30/2024 ANTIP HOSPH OLIPI D AB PANEL SENDO UT TO [id number] gcq <2.0 unit/ mL <20.0 no reference range Value Inter preta tion ----- ----- ----- ---- < 20.0 Antib shelley not detec caden > or = 20.0 Antib shelley detec caden Not Available [facility] (Lab)_do Not Use [address] [facility], [place], [address], 05/30/2024 13:14:25 05/28/19 25 05/30/2024 ANTIP HOSPH OLIPI D AB PANEL SENDO UT TO intercom cq SEE BELOW no reference range The antip hosph olipi d antib shelley syndr ome (APS) is a clini les-p athol ogic corre latio n that inclu tamiko a clini les event (e.g. arter ial or venou s throm bosis , pregn bay morbi dity) and persi stent posit mitchell anti- phosp holip id antib odies (IgM, IgG Cardi olipi n or b2GPI antib odies great er than the 99th perce ntile ; or a lupus antic oagul ant). Inter natio nal conse nsus guide lines for APS sugge st waiti ng at least 12 weeks befor e retes ting to confi rm antib shelley persi stenc e. The Syste yarely Lupus Inter natio nal Colla borat ing Clini cs immun ologi les class ifica tion crite joseph for syste yarely lupus eryth joaquin- tosus (SLE) inclu de testi ng for isoty pe IgA, which has yet to be incor porat ed into APS crite joseph. Low level antip hosph olipi d antib odies may somet imes be detec caden in the setti ng of infec tion, drug thera py or aging . For addit ional infor estefani mclaughlin e refer to http: //[facility] [place].que stdia gnost ics.c om/fa q/FAQ 109 (This link is being provi ded for infor alec douglas/ educa gail l purpo ses only. ) Not Available [facility] (Lab)_do Not Use [address], [place], [address], 05/30/2024 13:14:25 05/28/19 25 05/30/2024 C4 SERUM - SEND OUT CQ [id number] 21 mg/dL 15-53 no reference range Lab test perfo rmed by: Lab Mnemo braydon: [facility] [address] [employer] [facility] [place] Clyde Monaco MD PhD Not Available [facility] (Lab)_do Not Use [address] , [place], [address], 05/30/2024 18:09:21 05/28/1905/30/2024 C3 COMPL EMENT - SEND OUT CQ [id number] 129 mg/dL 82-185 no reference range Lab test perfo rmed by: Lab Mnemo braydno: [facility] [address] [employer] [facility] [place] Clyde Monaco MD PhD Not Available [facility] (Lab)_do Not Use [address] , [place], [address], 05/30/2024 18:16:06 05/28/1906/01/2024 ANTI NUCLE AR ANTIB ODIES IFA SCREE N W/REF anascrifacq Positi ve negati ve abnormal BONY IFA is a first line scree n for detec ting the prese nce of up to appro ximat zo 150 autoa ntibo dies in vario us autoi mmune disea ses. A posit mitchell BONY IFA resul t is sugge stive of autoi mmune disea se and refle xes to titer and mango rn. Furth er labor atory testi ng may be consi dered if clini sandoval indic ated. For addit ional infor alec n, estefani e refer to http: //[facility] caterasmo n.Que stDia gnost ics.c om/fa q/FAQ 177 (This link is being provi ded for infor alec nal/ educa gail l purpo ses only. ) Lab test perfo rmed by: Lab Mnemo braydon: [facility] [address] [facility] [place] Clyde Monaco MD PhD Not Available [facility] (Lab)_do Not Use [address] [facility], [place], [address], 06/01/2024 11:16:13 05/28/19 25 06/01/2024 .BONY, TITER AND PATTE RNCQ anatitercq 1:40 negati ve abnormal A low level BONY titer may be prese nt in pre-c linic al autoi mmune disea ses and lisette l indiv idual s. Refer ence Range : <1:40 Negat mitchell 1:40- 1:80 Low Antib shelley Level >1:80 [place] caden Antib shelley Level Not Available [facility] (Lab)_do Not Use [address] [facility], [place], [address], 06/01/2024 11:42:33 05/28/19 25 06/01/2024 .BONY, TITER AND PATTE RNCQ anapatterncq SEE BELOW no reference range Nucle bettina, Segundo led Segundo led mango rn is assoc iated with mixed conne ctive tissu e disea se (MCTD ), syste yarely lupus eryth emato bro (SLE) , Sjogr en's syndr ome, derma tomyo sitis , and syste yarely scler osis/ polym yosit is overl ap. AC-2, 4, 5, 29: Speck led Inter natio nal Conse nsus on BONY Patte rns https ://do i.org /10.1 515/c cl-2 018-0 052 Not Available [facility] (Lab)_do Not Use [address], [place], [address], 06/01/2024 11:42:33 05/28/19 25 06/01/2024 .BONY, TITER AND PATTE RNCQ [id number] NO RESULT no reference range Not Available [facility] (Lab)_do Not Use [address], [place], [address], 06/01/2024 11:42:33 05/28/19 25 06/01/2024 .BONY, TITER AND PATTE RNCQ [id number] q NO RESULT no reference range Not Available [facility] (Lab)_do Not Use [address], [place], [address], 06/01/2024 11:42:33 05/28/19 25 06/01/2024 .BONY, TITER AND PATTE RNCQ [id number] NO RESULT no reference range Lab test perfo rmed by: Lab Mnemo braydon: [facility] [address] [place] Clyde Monaco MD PhD Not Available [facility] (Lab)_do Not Use [address], [place], [address], 06/01/2024 11:42:33 05/28/19 25 06/01/2024 .BONY, TITER AND PATTE RNCQ [id number] q NO RESULT no reference range Not Available [facility] (Lab)_do Not Use [address], [place], [address], 06/01/2024 11:42:33 05/28/19 25 06/02/2024 CRYOG LOBUL IN,SE RUM CQ cryoglobulql cq Negati ve negati ve no reference range The Cryoc rit is prima rily inten ded for follo wing a patie nt with previ ously defin ed and quant itate d cryog lobul ins. The cryoc rit may consi st of cryog lobul ins, fibri ns, compl ement , or mixtu res of these . Not Available [facility] (Lab)_do Not Use [address] [facility], [place], [address], 06/02/2024 19:03:51 05/28/19 25 06/02/2024 CRYOG LOBUL IN,SE RUM CQ cryocrit cq NO RESULT no reference range Lab test perfo rmed by: Lab Mnemo braydon: [facility] [address] [employer] [place] Clyde Monaco MD PhD Not Available [facility] (Lab)_do Not Use [address], [place], [address], 06/02/2024 19:03:51 05/28/1906/02/2024 ELIZABETH H MUSCL E ANTIB SHELLEY W REFLE X TO TITER smooth muscle antibody screen cq NEGATI VE negati ve no reference range Test perfo rmed by [facility] [address] [place] [address] Phone : [phone] Medic al Direc tor: Gris gunn MD,PH D,HENRY Test Repor caden by [facility], [facility] Diagn ostic s [facility], [address] [employer] , [place], [place] Clyde Monaco M.D., Ph.D. , Direc tor of Labor atori es , CLIA [id number] Lab test perfo rmed by: Lab Mnemo braydon: [facility] [address] [facility] ofl [employer] [place], [place] Patri anuradha Monaco MD PhD Not Available [facility] (Lab)_do Not Use [address], [place], [address], 06/02/2024 23:48:18 10/02/1910/01/2024 GLUCO SE LEVEL POC BEDSI DE glu POC bdside 173 mg/dL 65-90 [place]: [id number] Not Available [facility] (Lab)_do Not Use [address], [place], [address], 10/01/2024 07:23:51 07/04/19 24 06/28/2023 xr chest 1 V front al [facility] t: NIK TEJADA 9 : 950 Sex: Male Locati on: MOPB PAT Orderi ng Physic indira: IMANI CORONEL MD Diagno stic Radiol ogy Access ion Exam Date/T todd 850-24 -109-0 0861 024 15:31 CDT Reason for Exam Pre-Op eval Report EXAM: SINGLE VIEW CHEST XRAY. Date: 2023 Compar maria eugenia: None Histor y: Preop Findin gs: No acute osseou s abnorm alitie s are seen. The lungs are clear . The cardia c silhou ette is within normal limits . The pulmon jyoti vascul ature is within normal limits . Impres son: No acute intrat horaci c findin gs. Final Signed by: SHERRY SHANKAR MD Signed (Elect geneva Signlou ure): 2023 01:07 pm CDT [email or web address] [facility] (Radiology) [address], [place], [address], 07/05/2023 15:35:02 09/17/19 24 08/02/2023 CT, angio gram, heart , w/ contr ast No observ ation record ed. BARCODE Not Available 2023 14:21:39 Result Notes None recorded. Problems Name Problem SNOMED Code Status Onset Date Resolution Date Notes Provider Name and Address Organization Details Recorded Time Rhinitis 14900582 Completed 01/24/2018 Beulah Cantrell STR[place], [place] - [address] 8 14:27:59 Rhinitis 71942979 Active Beulah Cantrell STRANNER null, [address] 8 14:27:59 Hearing loss 10601030 Active Beulah Pillaipton STR[place], [place] - [address] 8 14:28:12 Abnormal liver function 70102021 Active Beulah Cantrell STRANNER null, [address] 8 14:28:26 Chronic hepatitis C 314080087 Active Beulahbelgica Cantrell STRANNER null, [address] 8 14:28:51 Gastroesoph ageal reflux disease 889997627 Active Beulahbelgica Cantrell STRANNER null, [place] - [facility] [place] 8 14:29:04 Raynaud's phenomenon 551361946 Active 2024 I73.0 Stephanie Power , STRANNER null, [address] 5 13:16:02 Chronic diarrhea 208532917 Active 2024 SAVANNAH DIA, [employer] [address] [facility], [place], [address], [address] 5 10:19:50 Problem Notes None recorded. Procedures Surgical History Date Name Laterality Status Provider Name and Address Organization Details Recorded Time 07/02/19 24 CARDIAC CATHETERIZATION (SURG) completed Not Available [employer] 07/10/2023 12:58:38 Colonoscopy completed Beulah Cantrell [place] - [facility] [place] 01/24/2018 14:26:36 Imaging Results None recorded. Procedure Notes None recorded. Medical Equipment None Reported. Allergies Allergen ID Allergen Name Allergen Category Reaction Reaction Severity Criticality Documentation Date Start Date Code Code System Note Provider Name and Address Organization Details Recorded Time 00257 Product containin g penicilli n (product) medicatio n Not available Not available Not available 01/24/2018 99938 8001 [facility]ED [facility] [place] [facility] [place] 8 14:20:42 Medications Name Sig Start Date Stop Date Status Note LastModified by Organization Details LastModified Time primidone 50 mg tablet Take 2 tablets every day by oral route. 05/27 completed Not Available Not Available Not Available carvedilol 6.25 mg tablet Take 1 tablet twice a day by oral route for 90 days. 2023 active Not Available Not Available Not Avai lable donepezil 5 mg tablet TAKE 1 TABLET BY MOUTH ONCE DAILY AT BEDTIME active Not Available Not Available No t Available meloxicam 15 mg tablet Take 1 tablet every day by oral route. active Not Available Not Available No t Available lisinopril 20 mg tablet TAKE ONE TABLET BY MOUTH ONCE A DAY active Not Available Not Available No t Available atenolol 25 mg tablet Take 0.5 tablets every day by oral route. 08/27 completed Not Available Not Available Not Available Nelly Low Dose Aspirin 81 mg tablet,jazmin yed release Take 1 tablet every day by oral route. active Not Available Not Available No t Available amlodipine 5 mg tablet Take 1 tablet every day by oral route for 90 days. 2023 active Not Available Not Available Not Avai lable tramadol 50 mg tablet Take 1 tablet twice a day by oral route. 05/27 completed Not Available Not Available Not Available pantoprazol e 20 mg tablet,jazmin yed release Take 1 tablet every day by oral route. active Not Available Not Available No t Available lorazepam 0.5 mg tablet Take 1 tablet every day by oral route. 05/27 completed Not Available Not Available Not Available tamsulosin 0.4 mg capsule Take 1 capsule every day by oral route. active Not Available Not Available No t Available lisinopril 10 mg tablet Take 0.5 tablets every day by oral route. 08/27 completed Not Available Not Available Not Available gabapentin 300 mg capsule Take 1 capsule every day by oral route. active Not Available Not Available No t Available omeprazole 20 mg capsule,del ayed release Take 1 capsule every day by oral route. 05/27 completed Not Available Not Available Not Available etodolac 400 mg tablet Take 0.5 tablets twice a day by oral route as needed. active Not Available Not Available No t Available finasteride 5 mg tablet Take 1 tablet every day by oral route. active Not Available Not Available No t Available Multivitami n 50 Plus tablet Take 1 tablet every day by oral route. active Not Available Not Available No t Available Suprep Bowel Prep Kit 17.5 gram-3.13 gram-1.6 gram oral solution Take 177 mL twice a day by oral route as directed for 1 day. 02/12 completed Not Available Not Available Not Available cholecalcif louis (vit D3) 1,000 unit-vitami n K2 (MK4) 100 mcg tablet Take 1 tablet every day by oral route. 05/27 completed Not Available Not Available Not Available Metamucil 3.4 gram/5.4 gram oral powder Take 1 tbsp every day by oral route. 2024 active Not Available Not Available Not Avai lable Vitals Date Recorded Body height Body mass index (BMI) Body weight Oxygen saturation Heart rate Systolic And Diastolic Provider Name and Address Organization Details Last Updated DateTime 5 170.18 cm 28.9 kg/m2 01783.4 3 g 97 % 96 /min 175/86 mm[Hg] Stephanie Power LPN [address] 5 11:40:40 Date Recorded Body height Body mass index (BMI) Body weight Oxygen saturation Heart rate Systolic And Diastolic Provider Name and Address Organization Details Last Updated DateTime 5 170.18 cm 29 kg/m2 80063.5 9 g 100 % 74 /min 188/94 mm[Hg] Stephanie Power LPN [address] 5 10:14:54 Date Recorded Body height Oxygen saturation Heart rate Body mass index (BMI) Body weight Systolic And Diastolic Provider Name and Address Organization Details Last Updated DateTime 4 170.18 cm 98 % 89 /min 28.1 kg/m2 38295.4 7 g 150/76 mm[Hg] Mary Alice Malin R.N. [address] 4 11:36:27 Date Recorded Body height Heart rate Oxygen saturation Heart rate Respiratory rate Body mass index (BMI) Body weight Systolic And Diastolic Systolic And Diastolic Provider Name and Address Organization Details Last Updated DateTime 4 170.18 cm 68 /min 98 % 68 /min 16 /min 26.9 kg/m2 86602.8 9 g 220/100 mm[Hg] 190/98 mm[Hg] rachel Hernadez [address] 4 12:06:19 Date Recorded Body height Body mass index (BMI) Body weight Oxygen saturation Heart rate Systolic And Diastolic Provider Name and Address Organization Details Last Updated DateTime 5 170.18 cm 27.1 kg/m2 50663.7 6 g 96 % 63 /min 124/80 mm[Hg] Ara Kolb LPN [address] 5 10:04:27 Social History Question Answer Notes LastModified by GetBack[employer] ion Details LastModified Time Tobacco Smoking Status Former Smoker Beulah Cantrell AMI [address] 01/24/2018 14:27:28 Are You Blind Or Do You Have Difficulty Seeing? No [email or web address] Information not available 09/26/2024 What Is Your Level Of Caffeine Consumption? Moderate Information not available 05/27/2024 Are You Deaf Or Do You Have Serious Difficulty Hearing? Yes [email or web address] Information not available 09/26/2024 When Did You Quit Smoking? 11-15yearssin celastcigaret te 1973 [email or web address] Information not available 09/26/2024 What Was The Date Of Your Most Recent Tobacco Screening? 09/26/2024 [email or web address] Information not available 09/26/2024 What Is Your Current Pack Years? 30ormorepacky ears [email or web address] Information not available 09/26/2024 How Much Tobacco Do You Smoke? No Information not available 05/27/2024 Has Tobacco Cessation Counseling Been Provided? No Information not available 05/27/2024 Do You Have Difficulty Walking Or Climbing Stairs? Yes [email or web address] Information not available 09/26/2024 Sex: Unknown Functional Status Question Answer Note LastModified by Organizat ion Details LastModified Time Do you use any illicit or recreational drugs? No Information not available 05/27/2024 Do you or have you ever used any other forms of tobacco or nicotine? No Information not available 05/27/2024 What is your level of alcohol consumption? None Information not available 05/27/2024 Do you have difficulty doing errands alone? Yes Information not available 09/26/2024 Are you able to care for yourself independently? Yes [email or web address] Information not available 09/26/2024 Do you have difficulty dressing, bathing, grooming, or toileting? No [email or web address] Information not available 09/26/2024 Mental Status Question Answer Note LastModified by Organization D etails LastModified Time Do you have difficulty concentrating, remembering or making decisions? No [email or web address] Information no t available 09/26/2024 Family History Nothing Reported. Medical History Condition Response USE OF BLOOD THINNERS Y HYPERTENSION Y Past Encounters Encounter ID Performer Location Encounter Start Date Encounter Closed Date Diagnosis/Indication Diagnosis SNOMED-CT Code Diagnosis ICD10 Code Diagnosis IMO Codes Diagnosis Note [id number] Lan Ospina MD [facility] [address] [place] [address] 01/24/2018 14:02:16 01/24/2018 16:37:42 Screening colonoscopy 010823670 Z12.11 [id number] Lan Ospina MD [facility] [address] [place] [place] [address] 02/12/2018 15:15:38 02/12/2018 17:31:11 Screening colonoscopy 747800753 Z12.11 [id number] Duy Coronel MD [facility] [address] [place] [place] [address] 06/19/2023 11:53:18 06/19/2023 14:03:38 Hypertensive disorder 21772940 I10 Blood pressure 138/76 currently being treated with 12.5 mg of atenolol daily, 5 mg of lisinopril . No changes today pending workup as described below. Aortic valve stenosis 60 141044 I35.0 While we do not have the lecture he of reviewing the echocardio graphic images that were obtained, he does have potential symptoms which may be related to aortic stenosis. Furthermor e, the descriptio n of the valve states that there is significan t calcificat ion and decreased mobility of the leaflets. The gradient measured across the valve, however, on successive echocardio grams remains not concerning . Given his symptoms and this disparity between the visual appearance of the valve and velocities , it is possible that the peak jet was not able to be obtained and he very well might have significan t aortic stenosis. This was explained to him in detail, and noted that should he have aortic stenosis we would want to know the status of his coronary arteries. Therefore we have asked him to undergo a cardiac catheteriz ation in which we will perform coronary angiograph y as well as assess the gradient across his aortic valve to assure that if he indeed has aortic stenosis that he is referred for definitive therapy at that time [id number] [facility]uy [facility] [address] [place] [address] 07/12/2023 11:24:58 07/12/2023 12:19:31 Hypertensive disorder 60960653 I10 Blood pressure 138/76 currently being treated with 12.5 mg of atenolol daily, 5 mg of lisinopril . No changes today - pending TAVR evaluation Aortic valve stenosis 60 483309 I35.0 Cardiac catheteriz ation and invasive hemodynami cs clearly showed critical aortic stenosis with a valve area of less than 1. LikelyThe cause of his symptoms and he is referred to the [facility] valve center and Dr. Rosado for evaluation of TAVR. He has issues in terms of transporta tion and scheduling , and he is expecting a call from the valve clinic on Sunday to make arrangemen ts for his preprocedu ral visit. We discussed with him in detail the complexity of meeting with a heart surgeon, ray armijo cardiologkervin allan, undergoing a CT scan for advance planning, and then having to have a heart team discussion sure that TAVR would be his best therapy moving forward prior to undergoing the procedure. Coronary arteriosclerosis 14388229 I25.10 Incidental coronary artery disease found on coronary angiogram while assessing for aortic stenosis. Unclear if revascular ization of 1 or either 1 of these lesions would change his symptoms/q uality of life at this time. Will await opinion from the valve team. We would be happy to follow this medically and potentiall y revascular ize 1 or more of these lesion should he have residual symptoms after his TAVR procedure [id number] Duy Coronel MD PBPM_Card [facility] [address] [place] [address] 08/28/2023 10:43:17 08/28/2023 13:07:38 Aortic valve stenosis [id number] I35.0 Evaluation at [facility] Include a CT scan with a low calcium score, reflective of the fact that he likely does not have critical aortic stenosis at this time, despite cardiac catheteriz ation findings. CT scan also showed a liver lesion which requires further evaluation , and radiologcorbin bazan from sherry recommende d an MRI. At this point in time, before moving forward with further cardiac testing and/or therapy, will facilitate getting an MRI done to evaluate liver lesion and then determine next steps following this testing Coronary arteriosclerosis [id number] I25.10 Incidental coronary artery disease found on coronary angiogram while assessing for aortic stenosis. Unclear if revascular ization of 1 or either 1 of these lesions would change his symptoms/q uality of life at this time. Hypertensive disorder 38 701301 I10 Blood pressure continues to reflect significan t lack of control of his systemic pressures. At this point in time, we will change his lisinopril to 20 mg daily and stop his atenolol. We will also add carvedilol , 6.25 mg twice daily and amlodipine 5 mg a day to attempt to get better control of his blood pressure While further testing performed to determine potential next steps from a cardiovasc ular standpoint [id number] CHELLE Allen MD PBPM[facility] [address] [place] [address] 05/27/2024 10:56:22 05/27/2024 11:58:21 Raynaud's phenomenon [id number] I73.00 [id number] CHELLE Allen MD PBPM[facility]AT[facility] [address] [place] [address] 06/27/2024 09:39:09 06/27/2024 10:20:28 Raynaud's phenomenon [id number] I73.00 Dysphagia 35611646 R13.1 0 [id number] Lan Ospina MD PBPM_RPS GASTROENT EROLOGY [address] [facility] [place] [address] 09/26/2024 09:51:32 09/26/2024 12:52:34 Chronic diarrhea [id number] K52.9 31992 Dysphagia 47532528 R13.1 0 [id number] Gastroesop hageal reflux disease 022752762 K21.9 [id number] Health Concerns Section Related Observation LastModified by Organization Detai ls LastModified Time None Recorded Concern Status LastModified by Organization Details LastModified Time None Recorded Advance Directives Directive None Recorded Payers Insurance Date Sequence Insurance Name Policy Number Policy Bolden Covered Member ID Bolden Member ID Guarantor Name 10/18/2024 [employer] [facility] Nik Tejada [id number] Nik Tejada 09/26/2024 [facility] 4 Nik Eubankser Mallory [id number] Nik Tejada Notes Date Note Type Note Provider Name and Address Organization Details Recorded Time 07/12/2023 text/html 77 year old man with a 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 History of HTN, anxiety, GERD, osteoarthritis, and diabetes. He arrives today after undergoing a cath on 07/02/2023 revealing CAD with distal circumflex and mid PDA significant stenosis visualized as well as critical aortic stenosis with calculated aortic valve area at 0.84cm. Continues to have an overall decreased amount of energy, exertional tolerance, fatigue, and dyspnea on exertion.(05/21/2023 TTE)IMPRESSIONS:1. Normal LV size, mild LVH.2. Global systolic function: overall LV systolic function is normal with an estimated EF of 60-65%.3. Diastolic function: mitral inflow pattern and tissue doppler is consistent with mild diastolic dysfunction (grade I) and normal left atrial filling pressure,4. The RV size is normal. Normal RV systolic function.5. The left atrial size is normal.6. The right atrial size is normal.7. Aortic valve is trileaflet and is severely calcified. Mild aortic stenosis. The AV peak velocity is 2.86m/s and mean gradient is 16mmHg. The estimated aortic valve area is 1.6cm2.8. Moderate pulmonary HTN with an estimated RV/PA systolic pressure of 46mmHg, assuming RA pressure of 5mmHg. 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 History of HTN, anxiety, GERD, osteoarthritis, and diabetes. Patient had a consult with [facility] to which they requested addressing his CAD first to see if there is an improvement in symptoms. They stated that an MRI will be needed before further steps are needed for PCI as he has cirrhosis with a lesion of the liver. No symptoms of angina / chest discomfort. TESTING-07/02/2023 Cath: revealing CAD with distal circumflex and mid PDA significant stenosis visualized as well as critical aortic stenosis with calculated aortic valve area at 0.84cm.-05/21/2023 TTE: 1. Normal LV size, mild LVH. 2. Global systolic function: overall LV systolic function is normal with an estimated EF of 60-65%. 3. Diastolic function: mitral inflow pattern and tissue doppler is consistent with mild diastolic dysfunction (grade I) and normal left atrial filling pressure. 4. The RV size is normal. Normal RV systolic function. 5. The left atrial size is normal. 6. The right atrial size is normal. 7. Aortic valve is trileaflet and is severely calcified. Mild aortic stenosis. The AV peak velocity is 2.86m/s and mean gradient is 16mmHg. The estimated aortic valve area is 1.6cm2. 8. Moderate pulmonary HTN with an estimated RV/PA systolic pressure of 46mmHg, assuming RA pressure of 5mmHg. Duy Coronel MD [address] [place] [address], [phone], [facility] [place] 09/11/2023 14:16:32 05/27/2024 text/html 78-year-old male with history of abnormal liver function, chronic hepatitis C, GERD, rhinitis, hearing loss, referred to rheumatology for Raynaud's. Liver lesion under evaluation, On review of system he only complains mostly of gastroesophageal reflux disease. Has not seen GI since 2018. As far as musculoskeletal he did not complain much he is only talking about GERD and when I raised the question of Raynaud's he says he might hands turn blue and cold He is on amlodipine which is a calcium channel blockers and very well helps the above. chronic history of hepatitis C. Extensive review for seropositive and seronegative arthritides and connective tissue diseases other than stated above is negative. Very poor insight and I am not sure if he is able to understand or remember a lot. CHELLE MYERS MD [address] [place] [address], [phone], [facility] [place] 05/27/2024 12:01:06 06/27/2024 text/html Patient referred to rheumatology for Raynaud's. But I did not see any significant clinical signs and symptoms of Raynaud's nor does he have any history and serology positive for Raynaud's. Extensive serologies negative BONY was 1: 40 that is not even considered positive. He has history of hepatitis C treated and in remission and I even gave him the benefit of doubt to look for cryoglobulins to rule out any vasculitis. He has history of very bad GERD and apparently esophageal stricture he is unable to eat he throws up all the time and I strongly recommend a referral to GI. He was quite happy to know that serology was negative. He is negative BONY profile Negative anticentromere negative SCL 70 negative cryoglobulins negative AP also on and so forth. Most active problem is GERD and / esophageal stricture CHELLE MYERS MD [address] [place] [address], [phone], [facility] [place] 06/27/2024 10:22:36 09/26/2024 text/html 78-year-old male presents to the clinic for consultation for dysphagia. Patient states that he had difficulty swallowing for years. Patient states that he will have food to get stuck in his throat or his chest and he will have to cough or vomit it back up. He states that this happens almost daily. Patient is currently taking pantoprazole 20 mg daily for GERD. He states that he has occasional breakthroughs I offered to increase his pantoprazole and he did not feel it was needed for at this time. Patient has no known family history of gastrointestinal cancers. Patient reports that his bowel movements are well that he has diarrhea every so often, patient used to take Metamucil and he felt this was helpful but [facility] I will send in a new prescription today. Patient has a past history of a cholecystectomy. Patient denies any changes in bowel habits or GI bleeding. Patient is a former smoker and he does not regularly consume alcohol. Impression:1. Dysphagia2. GERD, fairly well-managed3. Intermittent diarrhea, chronic4. History of cholecystectomy5. No previous EGD6. No known family history of gastrointestinal cancers7. Former smoker Recommendations:1. Schedule EGD at patient's earliest convenience2. Continue pantoprazole 20 mg p.o. daily 30 minutes prior to 1 major meal per day, I offered to increase to 40 mg daily due to breakthrough GERD and patient blind at this time3. Begin Metamucil 1 tablespoon daily water per day4. Follow-up in GI clinic 2 weeks post endoscopic procedures SAVANNAH DIA NP [address] [place], [address], [facility] [place] 09/26/2024 14:00:45
--- OUTSIDE RECORDS SUMMARY | 2025-03-08 17:19 | XMS_ITS | Encounter Summary ---
Author Organization [facility] Address 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 Gender Identity Not on file Sexual Orientation Not on file documented as of this encounter Plan of Treatment Upcoming Encounters Date Type Department Care Team (Late st Contact Info) Description 04/13/2025 10:40 AM PRINCIPAL SYSTEMS ENGINEER Office Visit [address] [address] Britton Love MD [address] [address] documented as of this encounter Procedures Procedure Name Priority Date/Time Associated Diagnosis Comments CBC WITH DIFFERENTIAL Stat 11/04/2024 1:55 PM CDT Dizziness and giddiness COMPREHENSIVE METABOLIC PANEL Stat 11/04/2024 1:55 PM CDT Dizziness and giddiness documented in this encounter Results * (ABNORMAL) COMPREHENSIVE METABOLIC PANEL (11/04/2024 1:55 PM CDT) SODIUM 138 136 - 145 mmol/L 11/04/2024 2:17 PM CDT [facility] POTASSIUM 3.4(L) 3.5 - 5.1 mmol/L 11/04/2024 2:17 PM CDT [facility] CHLORIDE 100 98 - 107 mmol/L 11/04/2024 2:17 PM CDT [facility] CO2 26 22 - 29 mmol/L 11/04/2024 2:17 PM CDT [facility] CALCIUM 9.5 8.8 - 10.2 mg/dL 11/04/2024 2:17 PM CDT [facility] BUN 14 8 - 23 mg/dL 11/04/2024 2:17 PM [facility] CREATININE 1.00 0.67 - 1.17 mg/dL 11/04/2024 2:17 PM [facility] Comment:The GFR result is no t clinically significant on patients <18 or >70 years of age. GLUCOSE 170(H) 74 - 99 mg/dL 11/04/2024 2:17 PM [facility] TOTAL PROTEIN 7.0 6.6 - 8.7 g/dL 11/04/2024 2:17 PM [facility] ALBUMIN 4.1 3.5 - 5.2 g/dL 11/04/2024 2:17 PM [facility] BILIRUBIN TOTAL 1.1 0.0 - 1.2 mg/dL 11/04/2024 2:17 PM [facility] ALKALINE PHOSPHATASE 70 40 - 129 U/L 11/04/2024 2:17 PM [facility] AST 20 0 - 50 U/L 11/04/2024 2:17 PM [facility] ALT 14 0 - 50 U/L 11/04/2024 2:17 PM [facility] GFR >60 mL/min/1.7 3 sq meter 11/04/2024 2:17 PM [facility] Comment:eGFR calculated with 2020 CKD-EPI equation. Vegetarian diet, extremely high or low muscle mass, and may affect results. Cystatin C with Glomerular Filtration Rate is a suitable alternative for these patients. ANION GAP 12 5 - 20 mmol/L 11/04/2024 2:17 PM [facility] Blood Collection / Unknown 11/04/2024 1:55 PM CDT 11/04/2024 1:55 PM T us Donna Nelson ACTIVITY THERAPIST CHEMISTRY ORDERABLES Final Result [facility] CLIA # [id number] [address] [place] [address] * (ABNORMAL) CBC WITH DIFFERENTIAL (11/04/2024 1:55 PM T) [facility] Signature WBC 11.3(H) 4.2 - 9.1 K/uL 11/04/2024 1:58 PM [facility] RBC 4.80 4.63 - 6.08 M/uL 11/04/2024 1:58 PM [facility] HEMOGLOBIN 14.3 13.7 - 17.5 g/dL 11/04/2024 1:58 PM [facility] HEMATOCRIT 41.8 40.1 - 51.0 % 11/04/2024 1:58 PM [facility] MCV 87.1 79.0 - 92.2 fL 11/04/2024 1:58 PM [facility] MCH 29.8 25.7 - 32.2 pg 11/04/2024 1:58 PM [facility] MCHC 34.2 32.3 - 36.5 g/dL 11/04/2024 1:58 PM [facility] RDW 12.8 11.0 - 14.5 % 11/04/2024 1:58 PM [facility] RDW-STDEV 40.8 36.9 - 56.9 fL 11/04/2024 1:58 PM [facility] PLATELETS 236 130 - 400 K/uL 11/04/2024 1:58 PM [facility] MPV 10.8 10.0 - 14.8 fL 11/04/2024 1:58 PM [facility] NEUTROPHILS 80(H) 34 - 68 % 11/04/2024 1:58 PM [facility] LYMPHOCYTES 14(L) 22 - 53 % 11/04/2024 1:58 PM [facility] MONOCYTES 5 5 - 12 % 11/04/2024 1:58 PM [facility] EOSINOPHILS 1 1 - 7 % 11/04/2024 1:58 PM [facility] BASOPHILS 0 0 - 1 % 11/04/2024 1:58 PM [facility] IMMATURE GRANULOCYTES 0 % 11/04/2024 1:58 PM CDT [facility] NEUTROPHIL ABSOLUTE 8.98(H) 1.78 - 5.38 K/uL 11/04/2024 1:58 PM CDT [facility] LYMPHOCYTE ABSOLUTE 1.53 1.20 - 3.40 K/uL 11/04/2024 1:58 PM CDT [facility] MONOCYTE ABSOLUTE 0.58 0.30 - 0.82 K/uL 11/04/2024 1:58 PM CDT [facility] EOSINOPHIL ABSOLUTE 0.07 0.04 - 0.54 K/uL 11/04/2024 1:58 PM CDT [facility] BASOPHILS ABSOLUTE 0.05 0.01 - 0.08 K/uL 11/04/2024 1:58 PM CDT [facility] IMMATURE GRANULOCYTES ABSOLUTE 0.05 K/uL 11/04/2024 1:58 PM T [facility] Blood Collection / Unknown 11/04/2024 1:55 PM CDT 11/04/2024 1:55 PM CDT us Donna Nelson ACTIVITY THERAPIST HEMATOLOGY ORDERABLES Angelita l Result [facility] [id number] [address] [address] documented in this encounter Visit Diagnoses Diagnosis Dizziness and giddiness documented in this encounter Care Teams Backup Administrative Coordinator Relationship Specialty Start Date End Date Britton Love MD [address] [phone] PCP - General Family Practice 11/04/24 documented as of this encounter
--- OUTSIDE RECORDS SUMMARY | 2025-03-08 17:19 | XMS_ITS | Patient Health Record ---
Author Organization [facility] Address [address] [place] [address] Care Team Providers Care Tearoom Hostess Name Role Phone DR. Agus Lazo Unavailable [phone] Reason For Referral No Information Plan Of Treatment Pending Test Test Name Order Date X ray : CHEST PA LATERAL 01/12/2020 EKG (ECG RECORDING AND REPORT) 0
--- OUTSIDE RECORDS SUMMARY | 2025-03-08 17:19 | XMS_ITS | Encounter Summary ---
Author Organization [facility] Address [address] [place] [address] Care Team Providers Care Certified Welder Name Role Phone Britton Love MD Primary Care Provider [phone] Encounter Details Date Type Department Care Team (Late Contact Info) Description 10/19/[address] 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 Family Medicine [address] [address] Britton Love MD [address] [address] documented as of this encounter Visit Diagnoses Not on filedocumented in this encounter Care Teams Certified Welder Relationship Specialty Start Date End Date Britton Love MD [address] [address] PCP - General Family Practice 11/04/24 documented as of this encounter
[2025-03-08] MEDS: iohexol 350 mg/mL 500 mL Btl (per mL) IV (17:26)
--- NOTE | 2025-03-08 17:30 | ED_ITS ---
HPI - Neuro Symptoms/Deficit 2 General: Chief Complaint: Neuro Symptoms/Deficit Stated Complaint: slurred speech Time Seen by Provider: 03/08/25 17:16 Source: patient and EMS Mode of arrival: EMS Limitations: no limitations History of Present Illness: 79-year-old male states that at 1300 tod ay he started having slurred speech. Eyes continue to have slurring of his words denies any headache denies any weakness or difficulty walking. He denies any chest pain patient has no history of heart disease. He denies any nausea or vomiting Related Data Home Medications ?Medication ?Instructions ?Recorded ?Confirmed oxybutynin chloride 15 mg ea PO 04/25/22 04/25/22 tablet,extended release 24 hr Previous Rx's ?Medication ?Instructions ?Recorded mezzo brace to right #1 ea 09/02/20 supramalleolar orthoses to the #1 ea 09/02/20 right Diabetic shoes with 3 inserts #1 ea 04/25/22 aspirin 81 mg capsule 81 mg PO DAILY #30 caps 02/10 11/03 atorvastatin 80 mg tablet (Lipitor) 80 mg PO DAILY #30 tabs 03/08/25 Allergies Allergy/AdvReac Type Severity Reaction Status Date / Time No Known Allergies Allergy Verified 04/25/22 10:32 Review of Systems 2 Neuro: Reports: Slurred speech present NIH stroke score 2 NIHSS: Level Of Consciousness - 1a: 0 Level Of Consciousness Questions - 1b: Both Correct Level Of Consciousness Commands - 1c: Both Correct Best Gaze - 2: Normal Visual Molina - 3: No Visual Loss Facial Palsy - 4: N ormal Motor Arm Right - 5: No Drift Motor Arm Left - 5: No Drift Motor Leg Right - 6: No Drift Motor Leg Left - 6: No Drift Limb Ataxia - 7: A bsent Sensory - 8: Normal Best Language - 9: No Aphasia Dysarthia - 10: Mild/Moderate Dysarthia Extinction And Inattention - 11: 0 Score: Total Score: 1 Physical Exam 2 Const: COMMON NORMALS: no acute distress, patient oriented x3 and healthy appearing HENMT: COMMON NORMALS: normocephalic and atraumatic HEAD & SCALP: n ormocephalic and atraumatic Neck/C-Spine: COMMON NORMALS: full ROM and supple Chest: COMMONS NORMALS: normal inspection of the chest Resp: COMMON NORMALS: normal respiratory effort, No retractions, No use of accessory muscles and clear to auscultation bilaterally AUSCULTATION: clear to auscultation bilaterally Cardio: COMMON NORMALS: regular rate, regular rhythm and No murmurs present (Cardio) RATE: regular rate RHYTHM: regular rhythm Extremity: COMMON NORMALS: normal to inspection and full ROM Neuro: COMMON NORMALS: patient oriented x3 and moves all extremities C RANIAL NERVES: Yes CN normal except as noted SPEECH: abnormal speech Details: slurred MOTOR EXAM: 5/5 motor strength present throughout Psych: COMMON NORMALS: mental status grossly normal, Normal thought process present and cooperative THOUGHT PROCESS: Normal thought process present Skin: COMMON NORMALS: no rashes or lesions noted and no wounds GENERAL SKIN EXAM: no rashes or lesions noted Course 2 Vital Signs: Vital signs: Vital Signs Temperature 98.0 F 03/08/25 17:13 Pulse Rate 100 03/08/25 18:39 Respiratory Rate 20 H 03/08/25 17:13 Blood Pressure 121/83 03/08/25 18:39 Pulse Oximetry 97 03/08/25 18:39 Oxygen Delivery Tx thod Room Air 03/08/25 17:13 MDM - Neuro Symptoms/Deficit Medical Decision Making Patient presents here slurred speech last known normal was 1300. Patient is out of the window for TNKase at this time. He has no other deficits here besides his slurred speech head CT showed no acute abnormalities. Concern patient could have had a CVA due to his slurred speech did strongly recommend admission patient states that he has animals at home and he does not want to stay informed him he could have a worsening stroke he understands the consequences and decided to sign out AGAINST MEDICAL ADVICE did start him on aspirin and a statin he is to follow-up with neurology return if worsening or if he changes his mind he understands agrees to plan EKG interpreted by me at 1736 normal sinus rhythm heart rate [address] elevation QRS 94 QTc 424 Medical Records I reviewed the patient's medical records. Lab Data I reviewed the patient's lab results. 03/08/25 17:41 03/08/25 17:41 Radiology Impressions Head/Neck CTA 03/08/25 17:14 IMPRESSION: 1. 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 Please correlate with clinical history. 2. Stenosis right posterior cerebral artery 3. Mild stenosis right basilar artery 4. Stenosis right anterior cerebral artery IMPRESSION: 1. 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 Please correlate clinically. 2. Moderate to severe stenosis of the origin of the left vertebral artery. 3. No significant stenosis or occlusion involving the carotid arteries in the neck. REFERENCES: NASCET CRITERIA. The degree of stenosis in the cervical segment of the internal carotid artery is based on NASCET criteria. Normal is no stenosis. Mild is less than 50% stenosis. Moderate is 50-69% stenosis. Severe is 70% to 99% stenosis. Total occlusion is no detectable patent lumen. Head CT 03/08/25 17:15 IMPRESSION: Old infarcts. No acute finding. ASSESSMENT: ASPECTS ([place] Stroke Program Early CT Score) is 10. ADDENDUM: 03/08/25 9956 Addendum: THIS REPORT CONTAINS FINDINGS THAT MAY BE CRITICAL TO PATIENT CARE. The findings were verbally communicated via telephone conference with NILDA GERMAIN at 5:33 PM BLOCK BOLTER MULE OPERATOR on 03/08/2025. The findings were acknowledged and understood. Laboratory Results WBC 7.70 10^3/uL (3.29-11.43) 03/08/25 17:41 RBC 4.97 10^6/uL (3.85-5.65) 03/08/25 17:41 Hgb 15.10 g/dL (11.27-16.99) 03/08/25 17:41 Hct 45.9 % (37-53) 03/08/25 17:41 MCV 92.4 fl (82-101) 03/08/25 17:41 MCH 30.4 pg (27-33) 03/08/25 17:41 MCHC 32.9 g/dL (30-55) 03/08/25 17:41 RDW 12.9 % (12.1-15.1) 03/08/25 17:41 Plt Count 230 10^3/cmm (157-399) 03/08/25 17:41 MPV 11.0 fL (7.4-10.4) H 03/08/25 17:41 Neut % (Auto) 83.0 % 03/08/25 17:41 Lymph % (Auto) 11.9 % 03/08/25 17:41 Bremer % (Auto) 4.5 % 03/08/25 17:41 Eos % (Auto) 0.1 % 03/08/25 17:41 Baso % (Auto) 0.4 % 03/08/25 17:41 Neut # (Auto) 6.38 10^3/uL (1.8-7.7) 03/08/25 17:41 Lymph # (Auto) 0.9 10^3/uL (0.8-4.8) 03/08/25 17:41 Bremer # (Auto) 0.4 10^3/uL (0.2-0.9) 03/08/25 17:41 Eos # (Auto) 0.0 10^3/uL (0.0-0.8) 03/08/25 17:41 Baso # (Auto) 0.0 10^3/uL (0.0-0.1) 03/08/25 17:41 Nucleated RBC % (auto) 0 % 03/08/25 17:41 Nucleated RBCs # 0.0 /100WBC 03/08/25 17:41 PT 14.40 SECONDS (12.1-14.9) 03/08/25 17:41 INR 1.05 (0.8-1.2) 03/08/25 17:41 APTT 25.4 SECONDS (23.9-36.7) 03/08/25 17:41 Sodium 135 mmol/L (136-145) L 03/08/25 17:41 Potassium 3.6 mmol/L (3.5-5.1) 03/08/25 17:41 Chloride 98 mmol/L (98-107) 03/08/25 17:41 Carbon Dioxide 21 mmol/L (22-29) L 03/08/25 17:41 Anion Gap 19.6 (5-19) H 03/08/25 17:41 BUN 17 mg/dL (8-23) 03/08/25 17:41 Creatinine 1.4 mg/dL (0.7-1.2) H 03/08/25 17:41 GFR Calculation Not Reportable 03/08/25 17:41 Glucose 254 mg/dL (65-115) H 03/08/25 17:41 Calculated Osmolality 290 mOsm/kg (285-295) 03/08/25 17:41 Calcium 9.2 mg/dL (8.5-10.5) 03/08/25 17:41 Total Bilirubin 1.3 mg/dL (0.15-1.2) H 03/08/25 17:41 AST 17 U/L (0-40) 03/08/25 17:41 ALT 12 U/L (0-41) 03/08/25 17:41 Alkaline Phosphatase 73 U/L (40-130) 03/08/25 17:41 Total Protein 6.9 g/dL (6.6-8.7) 03/08/25 17:41 Albumin 4.0 g/dL (3.5-5.2) 03/08/25 17:41 Globulin 2.9 g/dL (1.3-4.6) 03/08/25 17:41 All radiology interpretation(s) finalized by discharge Discharge Plan Discharge Patient Disposition: Left Against Medical Advice Clinical Impression: Slurred speech Condition: Stable Prescriptions: New aspirin 81 mg capsule 81 mg PO DAILY Qty: 30 0RF atorvastatin [Lipitor] 80 mg tablet 80 mg PO DAILY Qty: 30 0RF No Action (DME) mezzo brace to right See Rx Instructions .Route .MEDSUPPLY Qty: 1 0RF Rx Instructions: As directed (DME) supramalleolar orthoses to the right See Rx Instructions .Route .MEDSUPPLY Qty: 1 0RF Rx Instructions: As directed by LINDSAY&O oxybutynin chloride 15 mg tablet extended release 24hr PO (DME) Diabetic shoes with 3 inserts See Rx Instructions .Route .MEDSUPPLY Qty: 1 0RF Rx Instructions: As directed by lindsay&o Referrals: Olivia Wise MD [Physician, Neurology] - 4-7 days María Worley MD [Primary Care Provider, Family Practice] Discharge Diet: Advance as tolerated Discharge Activity: Resume usual activity Patient Instructions: Stroke (DC) Print Language: Beninese Coding Level of Care Code ED Biology Intern for Larisa Del Cid
--- NOTE | 2025-03-08 17:36 | ECG_ITS ---
[facility] Date: 2025-03-08 Pat Name: Justin Tejada Department: Room: Gender: Male [employer] Clerk: : 1945 Requested By: Malinda Hughes Order Number: [id number] Reading MD: HERMILO COLORADO Measurements Intervals Blunt Rate: 97 P: 2 CT: 147 QRS: 7 QRSD: 94 T: 1 QT: 368 QTc: 469 Interpretive Statements SINUS RHYTHM WITH OCCASIONAL ECTOPIC PREMATURE COMPLEXES No previous ECG available for comparison Electronically Signed On 03-08-2025 22:50:14 MANUFACTURING PROCESS TECHNICIAN by HERMILO COLORADO [email or web address]
[2025-03-08 17:46] LABS: Hematocrit 45.9 % (37-53); Hemoglobin 15.10 g/dL (11.27-16.99); Mean Corpuscular HGB Conc 32.9 g/dL (30-55); Mean Corpuscular Hemoglobin 30.4 pg (27-33); Mean Corpuscular Volume 92.4 fl (82-101); Nucleated Red Blood Cells % 0 %; Platelet Count 230 10^3/cmm (157-399); Red Blood Count 4.97 10^6/uL (3.85-5.65); White Blood Count 7.70 10^3/uL (3.29-11.43)
[2025-03-08 17:57] LABS: INR 1.05 (0.8-1.2); Prothrombin Time 14.40 SECONDS (12.1-14.9)
[2025-03-08 17:58] LABS: Partial Thromboplastin Time 25.4 SECONDS (23.9-36.7)
[2025-03-08 18:05] LABS: Alanine Aminotransferase 12 U/L (0-41); Albumin Level 4.0 g/dL (3.5-5.2); Alkaline Phosphatase 73 U/L (40-130); Anion Gap 19.6 (5-19); Aspartate Amino Transferase 17 U/L (0-40); Blood Urea Nitrogen 17 mg/dL (8-23); Calcium 9.2 mg/dL (8.5-10.5); Carbon Dioxide 21 mmol/L (22-29); Chloride 98 mmol/L (98-107); Globulin 2.9 g/dL (1.3-4.6); Glucose 254 mg/dL (65-115); Osmolality Calculated 290 mOsm/kg (285-295); Potassium 3.6 mmol/L (3.5-5.1); Sodium 135 mmol/L (136-145); Total Protein 6.9 g/dL (6.6-8.7)
[2025-03-08 18:39] VITALS: BP 121/83; PULSE 100; O2SAT 97
== END 2025-03-08 18:40 | disposition left against medical advice (07) ==
PROVIDERS: Emergency Provider Emergency Medicine; PCP Family Medicine
DX: R47.81 Slurred speech (principal)
CPT/HCPCS: 36415; 70450; 70496; 70498; 80053; 85025; 85610; 85730; 93005; 99285